=== PATIENT | female | born 1965 | race Caucasian/White ===

== ENCOUNTER 2016-05-15 19:51 | Inpatient (IN) | payer OTHER ==
[~2016-05-15] VITALS: Ht 152.4 cm; Wt 48.6 kg
[~2016-05-15 19:51] MED LIST: PRISTIQ100 MG PO; TOPIRAMATE50 MG PO; TRAZODONE100 MG PO
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
--- NOTE | 2016-05-15 20:10 | NUR ---
PT [place]IB[place] [address] MEDIC/AMBULANCE DID NOT PATCH IN. PT WAS BROUGHT IN WITH PINPOINT PUPILS UNRESPONSIVE. KRISTEN ALEJANDRE ESTABLISHED IV ACCESS IN RAC #20. DR SANTACRUZ AT BEDSIDE. KRISTEN ALEJANDRE ADMINISTERED 0.8MG NARCAN IV. NO CHANGE IN PT RESPONSE. PTS BP 90/50 MANUALLY BY KRISTEN DE LOS SANTOS. PTS 02 SAT 97% RA WITH 78 HR. PT ON ARRIVAL HAS 81MG BS. PT CHANGED AND SECURITY CALLED FOR A WANDING. EKG COMPLETED BY NATHALY BUNDY. BLOOD CULTURES COLLECTED, LABS (LAV,BLUE, TRUJILLO, SST) SENT TO LAB DRAWN BY FILIBERTO.
--- NOTE | 2016-05-15 20:20 | NUR ---
PT STRAIGHT CATHED AND URINE TRIO SENT TO LAB
--- NOTE | 2016-05-15 20:21 | NUR ---
PER KRISTEN DE LOS SANTOS PT VOICED THAT IT WAS A SI INTENTION.
--- NOTE | 2016-05-15 20:21 | NUR ---
PT TO CT SCAN WITH KRISTEN DE LOS SANTOS.
--- NOTE | 2016-05-15 20:25 | NUR ---
THIS RN ASKED PT WHAT MEDICATIONS SHE TOOK TONIGHT, PT STATES "SOME SLEEPING PILLS" PT WAS FURTHER ASKED IF SHE WAS TRYING TO HARM HERSELF AND PT STATES "YES". PT STATED THESE COMMENTS IN A WHISPER.
--- NOTE | 2016-05-15 20:37 | CT SCAN REPORT ---
EXAMINATION: CT HEAD WITHOUT CONTRAST CLINICAL INFORMATION: Unresponsiveness. COMPARISON: No relevant prior imaging is available. TECHNIQUE: Contiguous axial imaging was performed from the skull base to vertex without intravenous administration of contrast. DLP: 743.8 mGy-cm FINDINGS: There is no acute intracranial hemorrhage or abnormal extra-axial collection. No intracranial mass effect or midline shift. Lateral and third ventricles are normal. No hydrocephalus. Siddiqui-white matter differentiation is preserved and there is no evidence of acute territorial infarct. The calvarium and skull base are intact. Mastoid air cells and middle ear cavities are well aerated. Visualized paranasal sinuses are well-aerated. IMPRESSION: Normal CT scan of the head.
[2016-05-15 20:42] LABS: ABSOLUTE BASOPHIL COUNT 0 /CUMM (0.0-0.2); ABSOLUTE EOSINOPHIL COUNT 0 /CUMM (0.0-0.7); ABSOLUTE GRANULOCYTE CT 6.1 /CUMM (1.4-6.5); ABSOLUTE LYMPH COUNT 4.1 /CUMM (1.2-3.4); ABSOLUTE MONOCYTE COUNT 0.5 /CUMM (0.10-0.60); BASOPHIL % 0.5 % (0.0-2.0); EOSINOPHIL % 0.1 % (0-5); HEMATOCRIT 36.2 % (37-47); MEAN CORPUSCULAR HGB 30.1 PG (27.0-31.0); MEAN CORPUSCULAR HGB CONC 33.3 G/DL (33.0-37.0); MEAN CORPUSCULAR VOLUME 90.5 FL (81.0-99.0); WHITE BLOOD CELL COUNT 10.8 /CUMM (4.8-10.8)
[2016-05-15 20:44] LABS: GRANULOCYTE % 56.6 % (42.2-75.2)
--- NOTE | 2016-05-15 22:02 | NUR ---
PT RESTING ON STRETCHER NORMAL RR NOTED.
--- NOTE | 2016-05-15 23:37 | NUR ---
NORMAL RR NOTED. PT RESTING ON STRETCHER.
--- NOTE | 2016-05-16 03:37 | NUR ---
PT'S EYES ARE OPEN AND PT IS STARING AT THE CEILING. PT STATES THAT SHE DOES NOT KNOW WHERE SHE IS. PT RE-ORIENTED TO TIME AND PLACE BY THIS RN.
--- NOTE | 2016-05-16 05:32 | NUR ---
PT STATES THAT SHE TOOK A HANDFUL OF LUNESTA.
--- NOTE | 2016-05-16 05:33 | NUR ---
PT WOULD LIKE FOR HER DAUGHTER YONI TO BE CONTACTED LATER IN THE MORNING AT [phone].
--- NOTE | 2016-05-16 06:25 | NUR ---
THIS RN ATTEMPTED TO CALL PT'S DAUGHTER PER PT'S REQUEST. THIS RN UNABLE TO REACH PT'S DAUGHTER. NO MESSAGE LEFT.
--- NOTE | 2016-05-16 07:30 | NUR ---
FINGER FOOD BREAKFAST TRAY GIVEN, PT CALM AND COOPERATIVE.
--- NOTE | 2016-05-16 11:10 | NUR ---
PT MOVED TO [place] D VIA STRETCHER, NO COMPLAINTS AT THIS TIME. AWAITING CRISIS EVAL.
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
--- NOTE | 2016-05-16 13:34 | ED PSY CRISIS COLLATERAL NOTE ---
Collateral Note Collateral Note Family/Inform/Jolynn Contacts: Reached out to Dr. Sorenson and Renetta Prince, regarding [facility] as she is seen outpatient there, also contacted Magnus her ex boyfriend/ contact/next of kin and the number is not correct. Pt has a daughter Gloria, and we are waiting to get the corrected number, the one in the notes is not correct.
--- NOTE | 2016-05-16 13:59 | NUR ---
PT MOVED TO ROOM # 15, AMBULATORY TOLERATED WELL. NO COMPLAINTS AT THIS TIME. CRISIS IN TO EVAL.
--- NOTE | 2016-05-16 14:01 | NUR ---
FUNERAL DIRECTOR/EMBALMER/OWNER ASKING IF PT WAS PLACED ON PEC. THIS RN SPOKE WITH OFFICER GABBY (C LAST NIGHT IN [place]) - STATES PT WAS PLACED ON EMERGENCY COMMITAL BY OFFICER TEGAN. CRISIS INFORMED OF SAME.
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
--- NOTE | 2016-05-16 15:13 | NUR ---
PT RESTING, WATCHING TV AT THIS TIME. AWAITING CPS BED, PT UPDATED ON PLAN OF CARE.
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
--- NOTE | 2016-05-16 16:25 | NUR ---
Security just informed that pt attempted to elope. Crisis notified Nurse Rachel Camara on CPS so they are aware that pt is an elopement risk.
--- NOTE | 2016-05-16 17:35 | NUR ---
REPORT GIVEN TO CPS RN. PT MEDICATED PER EMAR. DISTRIBUTION AND SECURITY CALLED FOR TRANSPORT.
[2016-05-16 18:08] VITALS: BP 117/67
[2016-05-16] MEDS ORDERED: GEODON80 MG PO (18:27)
--- NOTE | 2016-05-16 20:08 | NUR ---
Pt reports depression for a few weeks and open to help from the treatment team although she has some apprehensions, reassurance provided and pt receptive, flat affect, was placed on a 1:1 immediately upon entering CPS due to reports from crisis that prior to arrival to this unit, attempted to elope in the emergency department. Pt is calm, cooperative although slightly guarded was overall appropriate during admission intake. When asked directly denies hallucinations yet reports passive SI thoughts however, does state that she feels safe in the hospital and would not harm self and would let staff know if anything changed, pt is also a room next to the nurses staff and on a 1:1 for elopement risk and sitter also informed of SI as well as all staff & passed in report to commercial banker. Skin that is visible is clean, dry and intact & pt denies any alterations to skin that is not visible. Dr. Ventura's service notified for H&P 1820 as well. Pt has been stable on unit, + appetite and present in the community, watching TV, no anxiety or agitation reported or observed, pleasant.
[2016-05-16 20:22] VITALS: BP 110/73
--- NOTE | 2016-05-16 22:41 | NUR ---
PT IS ON 1:1 FOR ELOPEMENT RISK AND POSITIVE SI. PT COOP C R:1. PT INTERNALLY PREOCCUPIED, ISOLATIVE.
--- NOTE | 2016-05-17 04:48 | NUR ---
PT CONTINUES ON 1:1. PT UP X 1. SLEPT THRU REST OF NIGHT.
[2016-05-17 07:43] VITALS: BP 99/61
--- NOTE | 2016-05-17 09:57 | SOCIAL WORKER TX PLAN PSYCH ---
Treatment Plan - Please Document: - Evidence that there is ongoing collaboration between - the patient and the interdisciplinary team, - including the patient's active participation and - responsibility for engaging in the treatment regimen, - and that the treatment plan is individualized and - relevant to the patient's conditions. - Treatment plan should reflect documentation indicating - that all active therapeutic efforts are included. Strengths/Capabilities: engaged in out pt tx Physical Limitations (Interventions): none identified Patient Identified Trmt Goals: "I feel hopeless, I just want my life to be better." Discharge Plan: IOP Problem/Goals #1 Problem #1: self-harm behaviors Goal (Short Term): Today I will attend 2 groups Today I will identify 2 stressors Today I will identify 2 positive supports Today I will work on recognizing 3 emotions I am feeling Goal (Intermediate): Be free of suicidal thoughts/attempts Develop 3 coping skills to deal with depression Identify 3 positive support systems to call in crisis Develop a crisis plan with 3 dyson people Identify 2 positive traits per week about myself Identify 2 things I have to look forward to Identify 2 positive people in my life and 1 thing I appreciate about them Interventions: Learn ways to manage depressive symptoms accordingly and identify positive supports to manage life stressors and mood fluctuations. Modalities: Encourage groups, education on depression, provide CBT treatment, family meeting. DSM5/PS Stressors/Medical Prob Diagnosis' (DSM 5, Stressors, Medical): Major Depressive Disorder rec. sev F33.2 s/p OD Current GAF: 25 Treatment Team - Responsibilities of members of the treatment team include: - Medication Management- MD or BARTENDER HELPER - Medication Administration and Monitoring- Nurse - Group Therapy- Occupational Therapist - 1:1 Therapy,Disch Planning,family involvement-Global Human Resources Director
--- NOTE | 2016-05-17 10:08 | CPS MD/APRN INITIAL ASSE PSYCH ---
Psychiatric Admission Mdm Developer's Note Reviewed: Yes Patient Seen and Examined: Yes Identifying Information: Client is a 50 year old single woman in hospital scrubs. Chief Complaint: "I am ok, well depressed" Reaction to Hospitalization: Client is voluntarily hospitalized on inpatient unit, she is seeking help. History of Present Illness Onset of Illness: Client presented to the ED on a police PEER after suicide attempt by OD on esta and erratic driving/laying in the street. Circumstances Leading to Admission: Client reports steadily worsening sleep and depression over the past month. Recently "a creditor took my savings" and this was stressful as client was hoping to use those funds for a new apartment. Problem(s) Justifying Need for Admission: -suicide attempt -depression -continued passive suicidal ideation Past Psychiatric History Past Diagnosis(es)- if any: MDD Alcohol use disorder in full sustained remission Past Precipitating Factors- if any: Client unable to identify specific precipitating factors. Though chart review indicates some past history of medication noncompliance. - Include inpatient and outpatient treatment Treatment History: Client was in outpatient treatment with Dr. Sorenson and Renetta [facility]. [facility] 2015 suicide ideation [facility]PS 2014 suicide ideation [facility] 2009 suicide ideation [facility] IOP 2013 History of Suicide Attempts or Gestures Client endorses one previous suicide attempt by OD "many years ago" before she was connected to psychiatric treatment. Client reports she took pills with intention to , fell asleep, and then awoke unharmed. Substance Abuse History: hx alcohol use in remission since 2005 0.75 ppd tobacco use denies other drug use Allergies: Coded Allergies: bupropion (Intermediate, HIVES 07/20/15) Home Med List: lunesta 3mg HS geodon 80mg 2 PO HS pristiq 100mg daily (increased to 100mg 04/2016) melatonin 10mg HS Past Medication Trials: rozerem 8mg HS topamax 50mg BID remeron 30mg HS chlorpromazine 50mg HS ambien 10mg HS amitriptyline 50mg BID trazodone 100mg 2 at HS doxepin 50mg 2 at HS chantix seroquel 50mg HS lexapro 10mg daily abilify inderal buspar - Include any medical condition(s) that may - impact the patient's recovery/remission Past Medical History: -diverticulosis -borderline hypercholesterolemia Past History Medical History Psychiatric: anxiety, depression Isolation History: Standard Surgical History Surgical History: TUBAL LIGATION, LT KNEE REPAIR Psychiatric Family/Social Hx Family History Psychiatric Illness: son- bipolar disorder daughter- depression Substance Use: father- former alcohol use disorder Suicides: denies Social History Living Situation: with ex-boyfriend and daughter Significant Relationships (family/friends): three children ages 15, 21, 24 endorses daughters as supports Education: bachelor's degree in Arabic and Communications 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 Healthly Behaviors Screening Tobacco Screening Tobacco Use from ED Docu: Current Daily Use Daily Tobacco Use Amount/Type: => 5 Cigarettes daily - If tobacco counseling indicated - the following topics are required. - #1 Recognizing dangerous situations. - #2 Coping Skills. - #3 Basic information about quitting. Status of Tobacco Cessation Counseling: #1, #2 AND #3 Completed Cessation Med Status: Nicotine Patch Ordered Alcohol Screening - ETOH screen POS if BAL >=80 or Audit-C>= M4/F3 Audit-C Score from Diag Assess: 0 Blood Alcohol Level: Laboratory Tests 05/15 2011 Toxicology Serum Alcohol (<10 MG/DL) < 10.0 Alcohol Use Screening Results: Neg per Audit C &/or BAL - If ETOH counseling indicated - the following topics are required. - #1 Express concern about the patient's - drinking at unhealthy levels, include informing - of national norms for moderate drinking: - men <= 14 drinks/week, max 4 drinks/occasion - women <= 7 drinks/week, max 3 drinks/occasion - #2 Providing feedback, including linking alcohol to - negative physical effects (liver injury, hypertension) - negative emotional effects (relationship problems and - depression) - negative occupational consequences (reduced work - performance) - #3 Advising the patient to abstain from alcohol or - to drink below national norms for moderate drinking - (as listed above). Status of ETOH Use Counseling: N/A B/C NO ETOH Use Metabolic Screening - Screen if on a Neuroleptic Medication - Metabolic screening should include: - Blood Pressure, BMI, Glucose or Hgb A1c, & a - Lipid profile from within the past 365 days. Metabolic Screening () Not Applicable, patient not on a neuroleptic. OR ([x]) Patient on a neuroleptic(s) . Enter below results for Glucose or Hemoglobin A1C, and lipid panel if obtained during the last 365 days. BMI: Blood Pressure: 99/61 Laboratory Results (If applicable): [ Lab Cholesterol 244 MG/DL H 12/07/15 1546 Cholesterol/HDL Ratio 4 % 12/07/15 1546 Glucose 78 mg/dL 05/15/162011 HDL Cholesterol 63 mg/dL H 12/07/15 1546 Hemoglobin A1c 5.4 05/15/16 195 LDL Cholesterol, Calc 166 mg/dL H 12/07/15 1546 Triglycerides 76 mg/dL 12/07/15 1546 ] Exam and Plan Mental Status Examination Ambulation Status: steady Appearance: in [facility] scrubs Attitude towards examiner: engaged Psychomotor activity: calm Behavior: cooperative, fair eye contact Quality of speech: normal in rate, volume, tone Affect: constricted Mood: "alright, depressed" Suicidal Ideation: passive suicidal ideation without plan or intention, states she will reach out for help if feeling suicidal Homicidal Ideation: denies. Hallucinations: denies Paranoid/Delusional Material: Denies Difficulties with thought organization: none Goal-oriented thoughts. Insight: poor-fair Judgment: poor-fair Orientation: oriented x4 Cognition: grossly intact Memory Function: grossly intact Estimate of intellectual functioning: average Assets/Strengths Patient Identified Assets/Strengths: "I care a lot about my kids, and I have a dog to care for." Impression/Plan Impression and Plan: Client is a 50 year old single female presenting post suicide attempt by OD, erratic driving, and laying in the street amidst traffic. Client recalls events of the OD but does not recall driving erratically or laying the in the street. She endorses a history of depressive symptoms including low mood, hopeless feelings, suicidal thoughts, poor energy, poor sleep, and poor appetite. She denies any history of psychotic symptoms. She denies any history of manic/ hypomanic symptoms. She has had two previous suicide attempts and three previous hospitalizations for suicidal ideation. - Include all active medical diagnosis that require tx DSM 5 Diagnosis(es): MDD recurrent severe (F33.2) Alcohol use disorder in sustained remission since 2005 (F10.20) R/O Bipolar disorder - Initial Tx Plan for Active Psych & Medical Conditions Treatment Plan: Client presents today reporting that she is "ok" but continues to be depressed with passive suicidal ideations. She reports in the past she has felt that pristiq was quite helpful for her depression, and also that the addition of geodon alleviated her previous HI. She had been taking geodon 160mg at bedtime, but on the unit is getting geodon 80mg BID. She denies any HI today. She endorses that she slept "alright" on the unit, which is significantly better than prior to admission. Client reports decreased energy and a "good" appetite. She lists depression 9/10 (10 worst) and anxiety 9/10 (10 worst). EKG 05/15/16 was sinus rhythm, QTc 433. She will have a 1:1 sitter overnight, as she informed the social work job titles that she has passive SI with plan to smother herself. Will continue client on geodon 80mg BID and reevaluate in the morning, as advised by Dr. Sorenson. Discussed options with client including changing from pristiq to alternate antidepressant versus changing from geodon to alternate medication for additional mood stabilization. Recommended client consider lithium for suicide prevention given the severity of her attempt and history of prior attempt. Client is unwilling to start lithium. Client states she is open to trying abilify which she had been on previously, though she cannot remember how helpful it was. Ordered lipid panel. - Factors that would help patient function - in a less restrictive setting. Factors: -absence of suicidal ideation -improvement in symptoms of depression
--- NOTE | 2016-05-17 10:39 | SOCIAL WORKER PROG NOTE PSYCH ---
Social Work Progress Note Progress Note Met with Shonna today 1:1, she reports having SI currently, stated she would not harm herself on the unit. She denied HI, no AH/VH. Her thoughts are goal directed she is oriented x3. She reports feeling suicidal since January 2016, but did not tell her providers in OPS - Dr. Sorenson or Renetta [facility], [facility]. 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 She stated [employer] cuter her hours and doesn't pay her like they used to. Also, she found an apartment, but "a creditor took all my money out of my account." She lives with her ex-, and her 15yo daughter, Karly, and her 21yo son in [place]. She stated 'I can't catch a break." She was surprized to hear that the police found her unresponsive and was laying in the road. She did remember that the day she took the pills, she told her 15yo daughterKarly that she took the pills and was going to go to the hospital. Shonna also stated she spoke to her daughter, Karly to help he feel better when she was depressed, "she tried to help me feel better but nothing worked." Shonna believes the Tramadol belongs to her 21yo son. She stopped taking her Pristique 2 days prior to suicide attempt (overdose). She stated "I haven't been able to cry in a long time, I just wanted to cry so I went off it." Shonna stated she feels better during the summer, began feeling more depressed, with suicidal thoughts in Jan/Feb 2016. She stated 'Nothing is going to help me, being here (CPS) won't help me." She is not interested in IOP , stated "I have to work." Insight and jusdgement is poor. Shonna refused to sign a release for her ex- (who she lives with and plans to return to live after discharge). She agreed to sign a release for her older daughter, Kuldip Cee for a family meeting, phoned Kuldip and left voicemal for her to come in for a meeting today (between 2pm or 3:30pm) or on Sunday05/19/15. Shonna agreed to be safe on the unit, did state she had thoughts of "smothering herself" but then stated :"I don't know how I would do it, I won't fracisco anything to harm myself here."
--- NOTE | 2016-05-17 11:22 | NUR ---
PT IS STABLE WITH DEPRESSED AND CONSTRICTED AFFECT. SOMEWHAT VISIBLE WITHIN THE COMMUNITY AND INTERACTING MINIMALLY WITH PEERS/STAFF. PT OFTEN DOES NOT ENGAGE YET WHEN SHE DOES SHE IS POLITE, APPROPRIATE, CALM AND COMPLIANT. ATTENDING GROUPS. PT DID NOT VERBALIZE AT SI THOUGHTS TO THIS MHW. REMAINS ON ONE TO ONE FOR SUICIDE RISK. VS ARE STABLE.
[2016-05-17 12:41] VITALS: BP 103/69
--- NOTE | 2016-05-17 15:25 | History & Physical ---
General Information and HPI History of Present Illness: This middle-aged female came into the hospital because she was feeling too depressed and was thinking of committing suicide and therefore was admitted to the hospital for increased depression. She claims she has been seeing the psychiatrist on the outside every month and has been taking her medication but her depression has gotten worse recently and therefore she came to the hospital. She denies any specific physical problems although she admits to having lost some weight in last 6 months or so without trying and she admits that she has not been eating too much. Her past history is essentially negative and she does not have any significant ongoing medical illness. She does report having surgery of left knee for a torn ligament in the past but no other significant illnesses in the past. He admits to smoking daily about three quarters of a pack cigarettes and denies drinking any alcohol or taking any other illegal drugs. She is working at this time and is not and has 3 children and one of them has Crohn's disease and the other 2 are healthy. She claims her mother had diabetes and in her 50s and the father is alive and fairly healthy. Allergies/Medications Allergies: Coded Allergies: bupropion (Intermediate, HIVES 07/20/15) Home Med list Desvenlafaxine Succinate (Pristiq ER) 100 MG TAB.ER.24H 1 TAB PO DAILY DEPRESSION (Reported) Topiramate 50 MG TABLET 1 TAB PO BID ANXIETY (Reported) TRAZODONE HCL (Trazodone HCl) 100 MG TABLET 1 TAB PO QPM SLEEP (Reported) Ziprasidone HCl (Geodon) 80 MG CAPSULE 80 MG PO DAILY MOOD/ANXIETY (Reported) Past History Travel History Traveled to [place] past 21 day No Medical History Psychiatric: anxiety, depression Isolation History: Standard Surgical History Surgical History: non-contributory Past Family/Social History Psychosocial History Where do you live? 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 EENTM: Denies: no symptoms. Cardiovascular: Denies: no symptoms. Respiratory: Denies: no symptoms. GI: Denies: no symptoms. Genitourinary: Denies: no symptoms. Musculoskeletal: Denies: no symptoms. Skin: Denies: no symptoms. Neurological/Psychological: Reports: see HPI, depressed, emotional problems. Hematologic/Endocrine: Denies: no symptoms. Immunologic/Allergic: Denies: no symptoms. All Other Systems: Reviewed and Negative Exam & Diagnostic Data Last 24 Hrs of Vital Signs/I&O Vital Signs Date Time Temp Pulse Resp B/P Pulse O2 O2 Flow FiO2 Ox Delivery Rate 05/17 1241 66 103/69 05/17 0743 97.1 92 99/61 05/16 2021 97.6 53 110/73 05/16 1808 96.9 55 117/67 Intake & Output 05/17 1600 05/17 0800 05/17 0000 Intake Total Output Total Balance Patient 107 lb Weight Physical Exam General Appearance Alert, Oriented X3, Cooperative, No Acute Distress Skin No Rashes, No Breakdown, No Significant Lesion HEENT Atraumatic, PERRLA, EOMI, Mucous Membr. moist/pink Neck Supple, No JVD, No thryomegaly, +2 Carotid Pulse wo Bruit Lymphatic Cervical nl Cardiovascular Regular Rate, Normal S1, Normal S2, No Murmurs, Gallops, Rubs Lungs Clear to Auscultation, Normal Air Movement Abdomen Normal Bowel Sounds, Soft, No Tenderness, No Hepatospenomegaly, No Masses Neurological Exam Findings: Normal Gait, Normal Speech, Strength at 5/5 X4 Ext, Normal Tone, Cranial Nerves 3-12 NL, Reflexes 2+ Cranial Nerves II through XII: Within normal limits and intact Extremities No Clubbing, No Cyanosis, No Edema, No Tenderness/Swelling Assessment/Plan Assessment: This young female is admitted for increased depression and suicidal ideation. She claims she has been taking her medication and following up with psychiatry on the outside every month and still hurting depression has increased. She has some weight loss which may be primarily due to the depression and lack of enough food intake. Her basic blood work including a CBC electrolytes and liver functions are normal although the urine is slightly abnormal and she may have underlying urinary tract infection. Her hemoglobin has dropped slightly from a few months ago from the previous value. We will check her iron studies to see if she has lost any blood in the urine is low causing any anemia although her red cell indices are normal at this time. We will check the urine culture and the iron studies for anemia as well as B12 and folate but no other workup or treatment is needed at this time unless the results showed the need for any treatment after the above blood work. As Ranked By This Provider Problem List: 1. Depression 2. Suicidal ideations Miscellaneous Miscellaneous Documentation Attending Case Discussed With: ROSALIO QUINTERO MD Primary Care Physician: TAY GLOVER MD Patient sees these Specialists none Level of Patient Care: TACOS Sanchez Attending MD Review Statement Attending Statement Attending MD Statement: examined this patient, reviewed EMR data (avail), discussed with nursing Attending Assessment/Plan: This middle-aged female is admitted for increased depression and suicidal ideation. From medical standpoint she is fairly stable although she has lost some weight and there is a drop in her hematocrit compared to the previous value. We will check her iron studies as well as B12 and folate and check her urine for culture sensitivity. She has blood cultures pending in the lab for some uncertain reason and if the iron studies urine culture shows any positive results then we will consider treating her but otherwise she does not need any other workup or treatment at this time.
[2016-05-17 15:37] VITALS: BP 116/79
--- NOTE | 2016-05-17 18:31 | IP INCIDENTAL NOTE PSYCH ---
Incidental Note Notation: Phone call with outpatient prescriber Dr. Sorenson. She reports that client's suicide attempt was "out of the blue". She advises that as client was just admitted today, client can remain on current medications at present, and reevaluate client symptoms in the morning.
[2016-05-17 20:02] VITALS: BP 107/68
--- NOTE | 2016-05-17 21:23 | NUR ---
PT IS CALM, COOPERATIVE WITH STAFF AND PEERS, AND COMPLIANT WITH UNIT RULES. PT IS IN MILIEU, INTERACTING WELL WITH OTHERS. MOOD IS STABLE, AFFECT IS EUTHYMIC, COMMUNICATION IS NORMAL, AND APPETITE IS NORMAL. PT DENIES SI AT THIS TIME.
--- NOTE | 2016-05-18 05:29 | NUR ---
PT ON 1:1 FROM 2300 TO 0800 DUE TO ELOPEMENT RISK AND SUICIDAL IDEATION. PT APPEARED TO SLEEP.
[2016-05-18 07:49] VITALS: BP 104/57
[2016-05-18 12:59] VITALS: BP 106/76
--- NOTE | 2016-05-18 12:59 | SOCIAL WORKER PROG NOTE PSYCH ---
Social Work Progress Note Progress Note Pt reports she took lunesta, regretted it and attempted to drive herself to hospital, and was pulled over, and she doesn't remember too much of laying in the road, or the police, she doesn't know where her car is. Pt has a supportive father of her children, whom she is now "roommates with", and has lived there in his home for the past 3 years. Pt reports she is hopeless, overwhelmed, and has trouble being optimistic. Pt states she is struggling with less hours at work, and a disappointment that she cant move out on her own. Pt has a hx of financial burden.
--- NOTE | 2016-05-18 14:14 | CP SOUTH PROGRESS NOTE PSYCH ---
Psych (Inpt) Progress Note Progress Note Progress Note: [I discussed this patient's progress to date, current mental status, treatment process in the context of the treatment plan, and discharge planning with staff/ team in the daily morning inpatient team meeting. I also met with the patient myself in individual session.] S: "I feel fine" O: Current Medications Sig/Toan Start time Last Medication Dose Route Stop Time Status Admin Desvenlafaxine 100 MG DAILY 05/17 1000 AC 05/18 Succinate PO 0952 Gabapentin 300 MG Q6P PRN 05/16 1345 AC 05/16 PO 1741 Melatonin 10 MG .STK-MED ONE 05/17 2216 DC PO 05/17 2217 Melatonin 10 MG AT BEDTIME 05/16 2200 AC 05/17 PO 2221 Nicotine 14 MG 0800 05/17 0800 AC 05/18 TOP 0900 Trazodone HCl 50 MG AT BEDTIME 05/16 2150 AC 05/17 PO 2220 Ziprasidone 80 MG 1/2H B/BREAKF/DINNER 05/16 1630 AC 05/18 PO 0900 Laboratory Tests 05/18 0631 Chemistry Iron (37 - 170 ug/dL) 45 TIBC (265 - 497 ug/dL) 249 L Ferritin (11.1 - 264 ng/mL) 35.9 Triglycerides (<150 mg/dL) 97 Cholesterol (<200 MG/DL) 200 LDL Cholesterol, Calc (65 - 129 mg/dL) 121 HDL Cholesterol (40 - 60 mg/dL) 60 Cholesterol/HDL Ratio (0.00 - 4.23 %) 3 Folate (2.76 - 20.0 ng/mL) 6.4 Vital Signs Date Time Temp Pulse Resp B/P Pulse O2 O2 Flow FiO2 Ox Delivery Rate 05/18 1259 77 106/76 05/18 0749 96.5 64 104/57 05/17 2001 97.4 73 107/68 05/17 1537 77 116/79 Depression: 10/16 (10 worst) Anxiety: 07/17 (10 worst) Denies SI/HI, AH/VH, PI. Denies racing thoughts. A: Client presents today casually dressed. She reports that she her sleep worsened last night, ~4 hours, but overall feels her energy level is "good" today. She also reports he appetite is good. Client reports that she is no longer suicidal today. She denies suicidal ideation, intent or plan. She feels safe on the unit. She states and also believes that she will not kill herself. She reports she would inform nursing staff if she felt unsafe. This manual writer will discontinue overnight sitter. This manual writer discussed client's current medication regimen. Strongly recommended starting lithium for antisuicidal properties. Educated client on the benefits and the risks. Client is unwilling to try lithium at this time and wishes to try abilify which she has been on in the past , as she does not feel the geodon has been helpful. Educated client on the risks of abilify including EPS, metabolic risks, etc. Client verbalized understanding. Will cross taper geodon to abilify. Educated client on the risk for akathisia. Client understands the risks, benefits, and side effects of his current medication regimen and is agreeable to continue taking them. P: 1. Geodon taper reduction by 20mg BID (40mg total daily) until stop 2. Abilify start 5mg daily, 5mg increase daily until 15mg then re-evaluate 3. Continue other medications as ordered 4. Continue to evaluate for and rule out bipolar disorder
--- NOTE | 2016-05-18 14:16 | NUR ---
PT IS COMPLIANT AND COOPERATIVE. PT IS OUT IN COMMUNITY INTERACTING WELL WITH STAFF AND PEERS. PT MOOD IS STABLE WITH A FLAT AFFECT. PT IS ATTENDING ALL GROUPS THUS FAR. PT IS A LITTLE QUIET WHEN TALKING WITH STAFF BUT DOES ANSWER QUESTIONS. PT DENIES SI THOUGHTS.
[2016-05-18 15:50] VITALS: BP 107/62
[2016-05-18 19:27] VITALS: BP 96/55
--- NOTE | 2016-05-18 21:41 | NUR ---
PT IS CALM, COOPERATIVE WITH STAFF AND PEERS, AND COMPLIANT WITH UNIT RULES. PT IS IN MILIEU MOSTLY, BUT TENDS TO REMAIN SOLITARY, THOUGH WILL INTERACT WITH OTHERS WHEN DIRECTLY ENGAGED. PT MOOD IS STABLE, AFFECT IS EUTHYMIC, COMMUNICATION IS NORMAL, AND APPETITE IS NORMAL. PT DENIES SI AT THIS TIME.
[2016-05-19 07:50] VITALS: BP 111/64
--- NOTE | 2016-05-19 08:41 | CP SOUTH PROGRESS NOTE PSYCH ---
Psych (Inpt) Progress Note Progress Note [I discussed this patient's progress to date, current mental status, treatment process in the context of the treatment plan, and discharge planning with staff/ team in the daily morning inpatient team meeting. I also met with the patient myself in individual session.] S: "I am depressed thinking about returning home." O: Current Medications Sig/Toan Start time Last Medication Dose Route Stop Time Status Admin Aripiprazole 15 MG AT BEDTIME 05/20 2200 AC PO Aripiprazole 10 MG AT BEDTIME 05/190 AC PO 05/19 2200 Aripiprazole 5 MG AT BEDTIME 05/18 2200 DC 05/18 PO 05/18 2201 220 Desvenlafaxine 100 MG DAILY 05/17 1000 AC 05/18 Succinate PO 0952 Gabapentin 300 MG Q6P PRN 05/16 1345 AC 05/16 PO 1741 Melatonin 10 MG .STK-MED ONE 05/18 215 DC PO 05/18 2200 Melatonin 10 MG AT BEDTIME 05/16 2200 AC 05/18 PO 2204 Nicotine 14 MG 0800 05/17 0800 AC 05/18 TOP 0900 Trazodone HCl 50 MG AT BEDTIME 05/16 2150 AC 05/18 PO 2255 Ziprasidone 60 MG 1/2H B/BREAKF/DINNER 05/18 1630 AC 05/18 PO 05/21 1629 1921 Ziprasidone 80 MG 1/2H B/BREAKF/DINNER 05/16 1630 DC 05/18 PO 05/18 1409 0900 No new labs Vital Signs Date Time Temp Pulse Resp B/P Pulse O2 O2 Flow FiO2 Ox Delivery Rate 05/19 0750 97.3 65 111/64 05/18 1927 97.3 71 96/55 05/18 1550 77 107/62 05/18 1259 77 106/76 Depression: 11/16 Anxiety: 06/16 Dressed comfortably, adequate hygiene, long hair worn down, no makeup. Affect is flat and mildly anxious. Fair eye contact which improved towards end of med visit. Soft spoken speech. Describes current mood as "okay," but endorses increased depression related to eventually "going home." She endorses intermittent passive thoughts of SI, but denies plan or intent and identifies her family as protective factor. Patient does not identify her recent suicide attempt as impulsive, stating that she had been thinking about it for days beforehand. She identifies want to live and states she would reach to staff/ help if feeling unsafe or suicidal. A: Patient off overnight 1:1 sitter x 24hrs. She recently started geodon to abilify cross taper, and reports not adverse effects since starting abilify. Patient is willing to d/c geodon completely and continue with abilfy titration at this time. Patient had declined prior recommendation to start lithium, but is willing to "think about it." Digital Field Service Technician educated patient on its reasons for use including, treatment resistent depression, mood stabilization, and protective factors against suicide. She identifies barrier to starting it as "weight gain, " though does verbalize need to gain weight. Past/current symptoms and medication trials reveiwed with patient. She does not identify any benefit since her pristiq increase (as outpatient) from 50mg to 100mg; patient is agreeable to reduce dose as it may be activiting/worsen anxiety symptoms. Will offer increased trazodone to further help with sleep. Client understands the risks, benefits, and side effects (including EPS, akathesia, metabolic) of current medication regimen and is agreeable to continue taking them. Recommend follow up lytes given last NA of 136. P: stop geodon decrease pristiq 50mg daily abilify 10mg tonight, increase 15mg on 05/20 increase trazodone 100mg bedtime encourage patient to remove nicotine patch at night follow up lytes, RE: NA 136 continue to monitor client on unit for safety, SI, r/o bipolar disorder discharge planning per primary team
--- NOTE | 2016-05-19 11:54 | NUR ---
PT STATED HER GOAL TODAY WAS TO STAY POSITIVE. SHE IS COMPLIANT WITH HER MED REGIME AND IS ATTENDING GROUPS. HER MOOD IS DEPRESSED AND AFFECT IS FLAT. WHEN ASKED SHE DENIED ANY SUICIDAL THOUGHTS OR THOUGHTS OF SELF HARM. SHE STATED SHE FELT BETTER THAN WHEN SHE FIRST CAME TO THE HOSPITAL
[2016-05-19 14:21] VITALS: BP 111/66
--- NOTE | 2016-05-19 15:15 | SOCIAL WORKER PROG NOTE PSYCH ---
Social Work Progress Note Progress Note SW met with patient for the first time today. Patient presented withdrawn, sad, and somewhat fearful. Patient continues to endorse suicidal thoughts today and reports feeling hopeless. Patient shared that no one knows that she attempted to end her life and they believe that she is only here to manage depression. Patient reported that she does not want her family to know about her attempted OD. This report writer shared the importance of having family involvement in her treatment and patient was receptive to this. She agreed to have her oldest daughter come in for a family meeting and plans to be honest with her about her reason for admission. Patient is aware that the hospital made a DCF report and that they may request to come meet with her. She handled the news well with no complaints.
[2016-05-19 15:59] VITALS: BP 111/69
[2016-05-19 19:35] VITALS: BP 105/58
--- NOTE | 2016-05-19 20:15 | NUR ---
PT IS STABLE WITH FLAT, DEPRESSED AFFECT. PT IS OUT IN THE COMMUNITY BUT MINIMMALLY INTERACTS WITH PEERS/STAFF. PT DOES NOT ENGAGE UNLESS SOMEONE APPROACHES HER. VERY POLITE AND APPROPRIATE TO THE UNIT. COMPLIANT AND COOPERATIVE. VS ARE STABLE AND PT DENIES ANY SI/HI TO THIS MHW.
--- NOTE | 2016-05-20 05:32 | NUR ---
PT APPEARED TO SLEEP THRU THE NIGHT. NO LONGER ON 1:1. ABILIFY INCREASING.
[2016-05-20 08:55] VITALS: BP 100/59
--- NOTE | 2016-05-20 11:53 | NUR ---
PT REPORTS HER MOOD IS IMPROVING A LITTLE MORE EACH DAY. SHE IS GOING TO GROUPS AND TAKING HER MEDS. SHE IS QUIET OVERALL. SHE DENIES ANY THOUGHTS OF SUICIDE OR SELF HARM AT THIS TIME
[2016-05-20 12:34] VITALS: BP 114/63
--- NOTE | 2016-05-20 12:50 | CP SOUTH PROGRESS NOTE PSYCH ---
Psych (Inpt) Progress Note Progress Note Include the following elements, when applicable: Involvement in the active treatment of the patient with behavioral observations of the patient and the patient's response to the treatment. Review of the ongoing treatment process in the context of the treatment plan. Indication of how multi-disciplinary staff members are carrying out the treatment plan. Plans for future interventions and recommendations for revision of the treatment plan. Liaison with other physicians/providers. Progress Note: Pt reports that slept well last night. Does take the melatonin, "I guess it helps." She has no questions or concerns about medications. 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 Told pt about some programs that have PM IOP but seemed unsure. She notes that she is very socially isolated, "I just don 't say much." Has had no visitors and only spoke with her daughter once. Feels that meds and stay have improved her mood. Denies SI or HI. Denies manic or psychotic sx. Current Medications Sig/Toan Start time Last Medication Dose Route Stop Time Status Admin Aripiprazole 15 MG AT BEDTIME 05/20 2199 AC PO Aripiprazole 10 MG AT BEDTIME 05/19 220 DC 05/19 PO 05/19 2201 2207 Desvenlafaxine 50 MG DAILY 05/20 1000 AC 05/20 Succinate PO 0928 Desvenlafaxine 100 MG DAILY 05/17 1000 DC 05/19 Succinate PO 1017 Gabapentin 300 MG Q6P PRN 05/16 1345 AC 05/16 PO 1741 Melatonin 10 MG .STK-MED ONE 05/19 220 DC PO 05/19 220 Melatonin 10 MG AT BEDTIME 05/16 220 AC 05/19 PO 2208 Nicotine 14 MG 0800 05/17 0800 AC 05/20 TOP 0928 Trazodone HCl 100 MG AT BEDTIME 05/19 2200 AC 05/19 PO 2207 Trazodone HCl 50 MG AT BEDTIME 05/16 2150 DC 05/18 PO 2255 Ziprasidone 60 MG 1/2H B/BREAKF/DINNER 05/18 1630 DC 05/19 PO 05/21 1629 1117 Laboratory Tests 05/20 05/18 0636 0631 Chemistry Sodium (137 - 145 mmol/L) 138 Potassium (3.5 - 5.1 mmol/L) 4.2 Chloride (98 - 107 mmol/L) 103 Carbon Dioxide (22 - 30 mmol/L) 30 Anion Gap (5 - 16) 5 Iron (37 - 170 ug/dL) 45 TIBC (265 - 497 ug/dL) 249 L Ferritin (11.1 - 264 ng/mL) 35.9 Triglycerides (<150 mg/dL) 97 Cholesterol (<200 MG/DL) 200 LDL Cholesterol, Calc (65 - 129 mg/dL) 121 HDL Cholesterol (40 - 60 mg/dL) 60 Cholesterol/HDL Ratio (0.00 - 4.23 %) 3 Folate (2.76 - 20.0 ng/mL) 6.4 Vital Signs Date Time Temp Pulse Resp B/P Pulse O2 O2 Flow FiO2 Ox Delivery Rate 05/20 1234 69 114/63 05/20 0855 96.7 73 100/59 05/19 1935 96.8 64 105/58 05/19 1559 69 111/69 05/19 1421 74 111/66 MSE Appears younger than stated age. Cooperative behavior, good, appropriate eye contact. Nl speech rate and prosody though very quiet. No psychomotor retardation or agitation. Mood fine Affect depressed, constricted, appropriate, non-liable. Linear and goal directed thought process. Denies SI or HI. Does not appear to be responding to internal stimuli. Denies AVHs, paranoia, or delusions. I/J: limited A/P: Pt with hx of MDD with improved mood and anxiety. Concern for level of social isolation when at home. Would benefit from IOP and continued group therapy, if possible. - Continue current medication regimen - Encourage intergration into the milieu
--- NOTE | 2016-05-20 16:01 | NUR ---
LAB CALLED TO REPORT A POSTIVE BLD CX FROM Daniela ON 05/15. +GRAM COCCI AND +CLUSTERS. RESULTS REPORTED TO DR. ROMERO NO ORDERS GIVEN, CONTAMINATION SINCE PT IS ASYNPTOMATIC.
[2016-05-20 16:21] VITALS: BP 119/68
[2016-05-20 19:38] VITALS: BP 129/69
--- NOTE | 2016-05-20 21:24 | NUR ---
PT IS VISIBLE ON UNIT, WATCHING TV IN LOUNGE BUT HAS MINIMAL INTERACTION WITH PEERS. ATTENDED WRAP UP MEETING. NO COMPLAINTS OR SI REPORTED. PT HAS A STABLE MOOD AND FLAT AFFECT.
[2016-05-21 08:43] VITALS: BP 95/77
--- NOTE | 2016-05-21 09:58 | CP SOUTH PROGRESS NOTE PSYCH ---
Psych (Inpt) Progress Note Progress Note Include the following elements, when applicable: Involvement in the active treatment of the patient with behavioral observations of the patient and the patient's response to the treatment. Review of the ongoing treatment process in the context of the treatment plan. Indication of how multi-disciplinary staff members are carrying out the treatment plan. Plans for future interventions and recommendations for revision of the treatment plan. Liaison with other physicians/providers. Progress Note: Pt notes slept well last night. Does not feel overly sedated from meds. Denies SI or HI. Current Medications Sig/Toan Start time Last Medication Dose Route Stop Time Status Admin Aripiprazole 15 MG AT BEDTIME 05/20 2200 AC 05/20 PO 213 Desvenlafaxine 50 MG DAILY 05/20 1000 AC 05/20 Succinate PO 0928 Gabapentin 300 MG Q6P PRN 05/16 1345 AC 05/16 PO 1741 Melatonin 10 MG .STK-MED ONE 05/20 2130 DC PO 05/20 2131 Melatonin 10 MG AT BEDTIME 05/16 2200 AC 05/20 PO 213 Nicotine 14 MG 0800 05/17 0800 AC 05/20 TOP 0928 Trazodone HCl 100 MG AT BEDTIME 05/19 2200 AC 05/20 PO 2137 Laboratory Tests 05/20 0636 Chemistry Sodium (137 - 145 mmol/L) 138 Potassium (3.5 - 5.1 mmol/L) 4.2 Chloride (98 - 107 mmol/L) 103 Carbon Dioxide (22 - 30 mmol/L) 30 Anion Gap (5 - 16) 5 Vital Signs Date Time Temp Pulse Resp B/P Pulse O2 O2 Flow FiO2 Ox Delivery Rate 05/21 0843 97.9 92 95/77 05/20 1938 97.3 62 129/69 05/20 1621 64 119/68 05/20 1234 69 114/63 MSE Appears younger than stated age. Cooperative behavior, good, appropriate eye contact. Nl speech rate and prosody though very quiet. No psychomotor retardation or agitation. Mood fine Affect depressed, constricted, appropriate, non-liable. Linear and goal directed thought process. Denies SI or HI. Does not appear to be responding to internal stimuli. Denies AVHs, paranoia, or delusions. I/J: limited A/P: Pt with hx of MDD with improved mood and anxiety. Concern for level of social isolation when at home. Would benefit from IOP and continued group therapy, if possible. - Continue current medication regimen - Encourage intergration into the milieu
[2016-05-21 12:28] VITALS: BP 102/71
--- NOTE | 2016-05-21 15:02 | NUR ---
PT IS COMPLIANT AND COOPERATIVE. MOOD IS STABLE WITH A FLAT AFFECT. PT DENIES SI AT THIS TIME, NO COMPLAINTS OFFERED. PT CAN BE ISOLATIVE IN BED AT TIMES. PT HAS MINIMAL INTERACTION WITH OTHERS WHEN PRESENT ON UNIT. PT IS ATTENDING GROUPS. VITALS ARE STABLE, APPETITE IS GOOD.
--- NOTE | 2016-05-21 15:49 | NUR ---
Pt is A&O X 3, very isolatory in her room on bed rest and reading her book. Mood and affect are very depressed/ flat, but reported good night sleep and appetite. vital sign is stable and within the patient acceptable range, denies thought of self-harm and to someone else.
[2016-05-21 16:21] VITALS: BP 108/67
[2016-05-21 19:46] VITALS: BP 110/68
--- NOTE | 2016-05-21 20:11 | NUR ---
PT IS CALM, COOPERATIVE WITH STAFF AND PEERS, AND COMPLIANT WITH UNIT RULES. PT IS IN [place], WATCHING TELEVISION THROUGHOUT EVENING AROUND OTHERS, BUT ACTS SLIGHTLY ISOLATIVE AND WITHDRAWN PT TENDS TO NOT COMMUNICATE MUCH WITH PEERS. PT MOOD IS STABLE, AFFECT IS EUTHYMIC, COMMUNCIATION IS NORMAL, AND APPETITE IS NORMAL. PT DENIES SI AT THIS TIME.
--- NOTE | 2016-05-22 06:41 | NUR ---
PATIENT SLEPT ALL NIGHT.
[2016-05-22 07:45] VITALS: BP 100/54
--- NOTE | 2016-05-22 10:45 | CP SOUTH PROGRESS NOTE PSYCH ---
See Addendum Psych (Inpt) Progress Note Progress Note Include the following elements, when applicable: Involvement in the active treatment of the patient with behavioral observations of the patient and the patient's response to the treatment. Review of the ongoing treatment process in the context of the treatment plan. Indication of how multi-disciplinary staff members are carrying out the treatment plan. Plans for future interventions and recommendations for revision of the treatment plan. Liaison with other physicians/providers. Progress Note: [I discussed this patient's progress to date, current mental status, treatment process in the context of the treatment plan, and discharge planning with staff/ team in the daily morning inpatient team meeting. I also met with the patient myself in individual session.] SUJECTIVE: "I don't feel like much has changed since I've gotten here." OBJECTIVE: Current Medications Sig/Toan Start time Last Medication Dose Route Stop Time Status Admin Aripiprazole 15 MG AT BEDTIME 05/20 2200 AC 05/21 PO 2151 Desvenlafaxine 50 MG DAILY 05/20 1000 AC 05/22 Succinate PO 1009 Gabapentin 300 MG Q6P PRN 05/16 1345 AC 05/16 PO 1741 Melatonin 10 MG AT BEDTIME 05/16 2200 AC 05/21 PO 2151 Nicotine 14 MG 0800 08 0800 AC 05/22 TOP 1009 Trazodone HCl 100 MG AT BEDTIME 05/19 2200 AC 05/21 PO 2151 Vital Signs Date Time Temp Pulse Resp B/P Pulse O2 O2 Flow FiO2 Ox Delivery Rate 05/22 0745 97.5 92 100/54 05/21 1946 96.7 84 110/68 05/21 1621 75 108/67 05/21 1228 66 102/71 Lab ALT 28 U/L 05/15/162011 AST 17 U/L 05/15/162011 Albumin 3.6 g/dL 05/15/162011 Albumin/Globulin Ratio 1.4 % 05/15/162011 Alkaline Phosphatase 60 U/L 05/15/162011 Anion Gap 5 05/20/16 0636 BUN 10 mg/dL 05/15/162011 BUN/Creatinine Ratio 14.3 % 05/15/162011 Calcium 9.0 mg/dL 05/15/162011 Carbon Dioxide 30 mmol/L 05/20/16 0636 Chloride 103 mmol/L 05/20/16 0636 Cholesterol 200 MG/DL 05/18/16 0631 Cholesterol/HDL Ratio 3 % 05/18/16 0631 Creatinine 0.7 mg/dL 05/15/162011 Estimated GFR > 60 ml/min 05/15/162011 Ferritin 35.9 ng/mL 05/18/16 0631 Folate 6.4 ng/mL 05/18/16 0631 Globulin 2.5 gm/dL 05/15/162011 Glucose 78 mg/dL 05/15/162011 HDL Cholesterol 60 mg/dL 05/18/16 0631 Hemoglobin A1c 5.4 05/15/16 1956 Iron 45 ug/dL 05/18/16 0631 LDL Cholesterol, Calc 121 mg/dL 05/18/16 0631 Lactic Acid 0.8 mmol/L 05/15/162011 Potassium 4.2 mmol/L 05/20/16 0636 Sodium 138 mmol/L 05/20/16 0636 TIBC 249 ug/dL L 05/18/16 0631 TSH 1.790 uIU/mL 05/15/162011 Total Bilirubin 0.6 mg/dL 05/15/162011 Total Protein 6.1 g/dL L 05/15/162011 Triglycerides 97 mg/dL 05/18/16 0631 Troponin I 0.02 ng/ml 05/15/162011 Absolute Basophils 0 /CUMM 05/15/162011 Absolute Eosinophils 0 /CUMM 05/15/162011 Absolute Granulocytes 6.1 /CUMM 05/15/162011 Absolute Lymphocytes 4.1 /CUMM H 05/15/162011 Absolute Monocytes 0.5 /CUMM 05/15/162011 Basophils % 0.5 % 05/15/162011 CBC w Diff NO MAN DIFF REQ 05/15/162011 Eosinophils % 0.1 % 05/15/16 2012 Gran % 56.6 % 05/15/162011 Hct 36.2 % L 05/15/162011 Hgb 12.1 G/DL 05/15/162011 Lymphocytes % 38.2 % 05/15/16 2012 MCH 30.1 PG 05/15/162011 MCV 90.5 FL 05/15/162011 Monocytes % 4.6 % 05/15/16 2012 PUBS MCHC 33.3 G/DL 05/15/162011 RBC 4.00 /CUMM L 05/15/162011 RDW 14.0 % 05/15/162011 WBC 10.8 /CUMM 05/15/162011 ASSESSMENT: Chart, progress notes, VS, labs, and medication list reviewed. Met with the patient today for the first time on [facility]. On initial encoutner, she was resting in bed reading a book in her room. She was agreeable to meeting with this production underwriter in office. Eye contact was appropriate. Speech was soft-spoken, normal in rate and tone. Affect appeared flat. Mood was "depressed." She presented withdrawn, quiet, provided brief responses to this production underwriter's questions. She reported tolerating all medications well and denied untoward medication effects. She continued to report feeling depressed. Reported depression of 7/10 (10 being the worst) and anxiety of 4/10 (10 being the worst). She was unable to identify triggers to her depression. Reported feeling hopeless and helpless at times. Reported feeling unmotivated. She denied feelings of guilty and worthlessness. She reported sleeping well, approx 7 hours/night and having a good appetite. She denied passive and active suicidal ideation, plans and intent. She denied homicidal ideation. She stated and also believed she will not harm herself or others. She denied auditory and visual hallucinations. Thought process was linear. Thought content was appropriate. No evidence of paranoia or belkis delusions. Cognition was grossly intact. Reviewed option of [place] trial with patient to target treatment resistent depression and for its anti-suicidal properties. Reviewed the risk/benefit/SE profiles of [place], including renal and thyroid function risks, tremor, metabolic risks, and toxicity. Patient again informed of the need for routine serum monitoring. Patient continued to express concerns about potential for weight gain and required serum monitoring. Patient reported she will continue to consider option, but was not presently willing to intiate trial today. Discussed option of adding a second antidepressant such as WBU versus increasing present Abilify to serve as an adjuct to prescribed Prestiq. Reviewed the risk/benefit/ SE profiles of increasing Abilify further such as akethesia and metabolic risks. Patient verbalized understanding education and was agreeable to increasing Abilify to 20mg at bedtime tonight. PLAN: 1. Continue monitoring the patient on unit for safety, mood and suicidal ideation. 2. Continue current medications. 3. Increase Abilify to 20mg QHS. 4. Dispo planning per primary team.
[2016-05-22 12:27] VITALS: BP 97/60
--- NOTE | 2016-05-22 14:54 | NUR ---
PT IS OUT IN COMMUNITY INTERACTING WITH STAFF AND PEERS. PT IS COMPLIANT AND COOPERATIVE. PT IS ATTENDING GROUPS WHICH WAS HER GOAL OF THE DAY. PT MOOD IS STABLE WTIH A FULL RANGE AFFECT. PT DENIES SI THOUGHTS.
--- NOTE | 2016-05-22 15:46 | SOCIAL WORKER PROG NOTE PSYCH ---
Social Work Progress Note Progress Note Patient continues to present with flat affect and depressed mood. Patient continues to report intermittent passive SI with no plan. Patient has been attending groups on the unit and reports finding them helpful. She reports that her mood has improved since admission but that she still feels sad and depressed. Patient reports that she has had no visitors since admission and did not comment whether or not this bothered her. Patients oldest daughter, Kuldip, is coming in tomrorow for a family meeting at 1:30pm. We started to discuss discharge planning today and I discussed the importance of stepping down to IOP post discharge from the hospital. Patient is somewhat resistent to this plan due to her work schedule. Patient is aware that we will discuss this more tomorrow with her daughter during the family meeting.
[2016-05-22 15:48] VITALS: BP 101/70
[2016-05-22 19:51] VITALS: BP 111/68
--- NOTE | 2016-05-22 21:12 | NUR ---
PT IS CALM AND COOPERATIVE WITH STAFF. PT HAS BEEN SEEN OUT IN THE COMMUNITY BUT RATHER ISOLATIVE AROUND PEERS AND APPEARS SLIGHTLY WITHDRAWN WITH MINIMAL INTERACTION WITH STAFF/PEERS. PT OFFERS NO COMPLAINTS AT THIS TIME. PT DENIES HAVING SI THOUGHTS.
--- NOTE | 2016-05-23 05:40 | NUR ---
PT APPEARED TO SLEEP WELL. -SI.
[2016-05-23 08:13] VITALS: BP 89/69
[2016-05-23 12:12] VITALS: BP 114/73
--- NOTE | 2016-05-23 13:59 | CP SOUTH PROGRESS NOTE PSYCH ---
Psych (Inpt) Progress Note Progress Note Include the following elements, when applicable: Involvement in the active treatment of the patient with behavioral observations of the patient and the patient's response to the treatment. Review of the ongoing treatment process in the context of the treatment plan. Indication of how multi-disciplinary staff members are carrying out the treatment plan. Plans for future interventions and recommendations for revision of the treatment plan. Liaison with other physicians/providers. Progress Note: [I discussed this patient's progress to date, current mental status, treatment process in the context of the treatment plan, and discharge planning with staff/ team in the daily morning inpatient team meeting. I also met with the patient myself in individual session.] SUBJECTIVE: "I think I'm starting to feel a little better." OBJECTIVE: Current Medications Sig/Toan Start time Last Medication Dose Route Stop Time Status Admin Aripiprazole 5 MG .STK-MED ONE 05/22 221 DC PO 05/22 2215 Aripiprazole 20 MG AT BEDTIME 05/22 2200 AC 05/22 PO 2220 Desvenlafaxine 50 MG DAILY 05/20 1000 AC 05/23 Succinate PO 1003 Gabapentin 300 MG Q6P PRN 05/16 1345 AC 05/16 PO 1741 Melatonin 10 MG .STK-MED ONE 05/22 2213 DC PO 05/22 2214 Melatonin 10 MG AT BEDTIME 05/16 2200 AC 05/22 PO 2220 Nicotine 14 MG 0800 /08 0800 AC 05/23 TOP 1003 Trazodone HCl 100 MG AT BEDTIME 05/19 2200 AC 05/22 PO 2220 Vital Signs Date Time Temp Pulse Resp B/P Pulse O2 O2 Flow FiO2 Ox Delivery Rate 05/23 1212 63 114/73 05/23 0813 97.3 96 89/69 05/22 1951 98.2 69 111/68 05/22 1548 87 101/70 ASSESSMENT: Chart, progress notes, VS, labs, and medication list reviewed. Met with patient today together with Rose Yates LCSW and the patient's daughter Kuldip for a family meeting. The patient's treatment progress to date, level of safety, medication regimen, and discharge planning were reviewed. The patient was agreeable to following-up with [facility] level of care post-discharge however expressed concerns about how IOP schedule would effect her work schedule. [place] trial was discussed at length during family meeting to help target treatment resistant depression and for anti-suicidal properties. Reviewed the risk/benefit/SE profiles of [place] with the patient again, including kindey/ thyroid function risk, tremor, metabolic risks, toxicity, and need for routine blood work. Patient remained resistent to [place] trial due to SE of wt gain, despite educating the patient that Abilify which she is currently prescribed also carries the same risk of wt gain. Patient's daughter Kuldip was in favor of patient trialing [place], however the patient consistently declined. This engineering technical writer asked the patient to carefully consider this option again, as she has never been on [place] in the past. Patient reported she would consider this option and would be willing to discuss again tomorrow morning. On encounter today, patient presented A&Ox3. Speech was soft-spoken, normal in rate and tone. Affect appeared flat. Mood "depressed." Appeared quiet, withdrawn , and guarded. She reported depression of 6/10 (10 being the worst) and anxiety of 4/10 (10 being the worst). She reported feeling hopeless and helpless. She denied feeling worthless or guilty. Reported good sleep and appetite. She denied passive and active suicidal ideation, plans and intent. However, when asked what reasons she had to live, the patient could not identify any. She denied homicidal ideation. She denied auditory and visual hallcuinations. Thought process was linear. Thought content was appropriate. There was no evidence of paranoia or belkis delusions. Cognition was grossly intact. She reported tolerating increase in Abilify to 20mg QHS last night well and denied untoward medication effects. Discussed with patient option of increasing Pristiq to 100mg QAM to further target depression. Patient unwilling to commit to further medication adjustments at this time. Will readdress tomorrow morning, and also address option of [place] trial. PLAN: 1. Continue current medications. 2. Readdress trial of [place], or increasing Pristiq tomorrow morning to further target depression. 3. Monitor patient on unit for safety, suicidal ideation, and mood. 4. Dispo planning per primary team.
--- NOTE | 2016-05-23 14:18 | NUR ---
PT IS COMPIANT AND COOPERATIVE. PT IS OUT IN COMMUNITY INTERACTING WELL WITH STAFF AND PEERS. PT IS ATTENDING ALL GROUPS AND HER GOAL THIS MORNING WAS TO KEEP DOING SO. PT MOOD IS STABLE WITH A FLAT AFFECT. PT IS ACTIVE IN GROUPS. PT DENIES SI THOUGHTS
--- NOTE | 2016-05-23 15:51 | SOCIAL WORKER PROG NOTE PSYCH ---
Social Work Progress Note Progress Note Patient had family meeting today with her daughter Kuldip. Kuldip expressed concerns regarding patients discharge from the hospital. Patient denies SI today but is unable to identify any desire or reasons to live at present. Patient presented with flat affect during the meeting and was difficult to engage in conversation. Patient did express her resistence to starting on [place] although reported that her mood has changed minimally since admission to the hospital. Patient is still resistent to IOP due to the schedule interfering with her work schedule. 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 We also discussed the importance of patient re-engaging with AA in the community in order to develop a positive support network/ connections with individuals in the community. Patient was open to this idea. Patient also expressed an interest in attending Yoga.
[2016-05-23 16:03] VITALS: BP 122/65
[2016-05-23 19:43] VITALS: BP 123/65
--- NOTE | 2016-05-23 22:29 | NUR ---
Pt is out in the community mood is stable affect is flat. Pt vital signs are stable c/o no pain compliant and cooperative with the staff. Appetite is good will conitue to monitor the pt overnight.
--- NOTE | 2016-05-24 04:06 | NUR ---
PT APPEARED TO SLEEP. -SI.
[2016-05-24 07:48] VITALS: BP 86/65
--- NOTE | 2016-05-24 10:42 | CP SOUTH PROGRESS NOTE PSYCH ---
Psych (Inpt) Progress Note Progress Note Include the following elements, when applicable: Involvement in the active treatment of the patient with behavioral observations of the patient and the patient's response to the treatment. Review of the ongoing treatment process in the context of the treatment plan. Indication of how multi-disciplinary staff members are carrying out the treatment plan. Plans for future interventions and recommendations for revision of the treatment plan. Liaison with other physicians/providers. Progress Note: [I discussed this patient's progress to date, current mental status, treatment process in the context of the treatment plan, and discharge planning with staff/ team in the daily morning inpatient team meeting. I also met with the patient myself in individual session.] SUBJECTIVE: "I'm feeling ok today." OBJECTIVE: Current Medications Sig/Toan Start time Last Medication Dose Route Stop Time Status Admin Aripiprazole 20 MG AT BEDTIME 05/22 2200 AC 05/23 PO 2201 Desvenlafaxine 100 MG DAILY 05/25 1000 DC Succinate PO Desvenlafaxine 100 MG DAILY 05/24 1045 AC Succinate PO Desvenlafaxine 50 MG DAILY 05/20 1000 DC 05/23 Succinate PO 1003 Gabapentin 300 MG Q6P PRN 05/16 1345 AC 05/16 PO 1741 Melatonin 10 MG AT BEDTIME 05/16 2200 AC 05/23 PO 2201 Nicotine 14 MG 0800 08 0800 AC 05/24 TOP 1040 Trazodone HCl 100 MG AT BEDTIME 05/19 2200 AC 05/23 PO 2201 Vital Signs Date Time Temp Pulse Resp B/P Pulse O2 O2 Flow FiO2 Ox Delivery Rate 05/24 0748 96.9 83 86/65 05/23 1943 97.5 79 123/65 05/23 1603 73 122/65 05/23 1212 63 114/73 ASSESSMENT: Chart, progress notes, labs, VS and medication list reviewed. Met with the patient today, who presented A&Ox3. Speech remained soft-spoken, normal in rate and tone. She appeared more easily engagable in conversation today. Appeared less guarded and withdrawn. Affect was constricted. Mood was "ok." She reflected on family meeting yesterday with her daughter and primary team, and reported a desire to trial [facility] IOP despite her work schedule. She reported that her primary concern about discharging home was returning back to her isolative pattern. She showed improved insight into the necessity of surrounding herself with supportive people, which she connected would be a benefit of IOP participation. She also expressed desires to resume participation in AA meetings, yoga and exercise classes. She identified one barrier to isolative behavior outside of hospital being that once she is home she has difficulty getting out of the house d/t poor motivation. We discussed trying to engage in activites such as yoga and exercise classes after leaving IOP or work (on non-IOP days) to keep her engaged in activites before returning home and increase her social network. She identified her daughter Kuldip as a good support in her life, and speaking to her every couple of days on the phone. Encouraged patient to continue weekly contact with her daughter as an additional layer of support. Today, the patient reported depression of 5/10 (10 being the worst) and anxiety of 3/10 (10 being the worst). She reported feeling sometimes hopeless and helpless that her mental health symptoms won't improve. Discussed with the patient that her participation/reaching out to [facility], friends/family will remain a factor in receiving support when needed. Patient agreed with this and seemed motivated to make efforts to stay connected to IOP/AA and family. She denied active and passive SI, plans and intent today. Patient continued to struggle to identify reasons to live. She denied homicidal ideation, plans and intent. She denied auditory and visual hallucinations. She reported her sleep and appetite were good. Thought process was linear and goal-directed. Thought content was appropriate. There was no evidence of paranoia or delusional thoughts. Cognition was grossly intact. Reviewed again with the patient her level of willingness to trial [place] for tx resistant depression and anti-suicidal properties. The patient continued to decline trial of [place], and reported that this would be a medication she would need to further consider once discharged but would not elaborate on the reasons for why she did not want to trial [place] inpatient, despite this newswriter's strong recommendation to start trial. Patient was instead agreeable to increasing Pristiq to 100mg daily to further target depression. Patient reported tolerating all medications well and denied untoward effects. Patient agreeable to increasing Pristiq to 100mg daily today to further target depression. PLAN: 1. Continue montoring the patient on unit for safety, suicidal ideation, and mood. 2. Increase Pristiq from 50mg to 100mg daily to further target depression. 3. Dispo planning per primary team.
[2016-05-24 12:32] VITALS: BP 102/50
--- NOTE | 2016-05-24 12:58 | NUR ---
PT NOT VISIBLE MUCH IN THE [place] TODAY. HER GOAL WAS TO ATTEND GROUPS, WHICH PT HAS NOT BEEN DOING MUCH OF. PT HAS BEEN IN HER ROOM A LOT, ISOLATING FROM HER PEERS. SHE HAS BEEN COOPERATIVE WITH STAFF DIRECTION THOUGH, COMING OUT FOR VITALS AND FOR MEALS. PT DENIES THOUGHTS OF HURTING SELF WHEN ASKED.
--- NOTE | 2016-05-24 16:22 | SOCIAL WORKER PROG NOTE PSYCH ---
Social Work Progress Note Progress Note Patient presented with brighter mood and affect today. Patient reports feeling her mood has improved today and she is having less negative thoughts. Patient seen attending groups today but minimal interaction with peers and staff. Patient appeared less guarded with this fiction writer today and did report being more open to IOP. Patient will be set up with IOP intake for this Sunday05/26/16. Patient denied active suicidal thoughts today but did report some feelings of hopelessness and helplessness today.
[2016-05-24 16:28] VITALS: BP 97/65
[2016-05-24 19:42] VITALS: BP 111/73
--- NOTE | 2016-05-24 22:01 | NUR ---
PT IS VISIBLE ON UNIT, WATCHING TV IN LOUNGE BUT HAS MINIMAL INTERACTION WITH PEERS AND STAFF. ATTENDED WRAP UP MEETING AND PARTICIPATED. NO COMPLAINTS OR SI REPORTED. PT HAS A STABLE MOOD AND FLAT AFFECT.
--- NOTE | 2016-05-25 04:21 | NUR ---
SLEPT, NO COMPLAINTS OFFERED
[2016-05-25 07:53] VITALS: BP 89/56
--- NOTE | 2016-05-25 10:25 | CP SOUTH PROGRESS NOTE PSYCH ---
Psych (Inpt) Progress Note Progress Note Include the following elements, when applicable: Involvement in the active treatment of the patient with behavioral observations of the patient and the patient's response to the treatment. Review of the ongoing treatment process in the context of the treatment plan. Indication of how multi-disciplinary staff members are carrying out the treatment plan. Plans for future interventions and recommendations for revision of the treatment plan. Liaison with other physicians/providers. Progress Note: [I discussed this patient's progress to date, current mental status, treatment process in the context of the treatment plan, and discharge planning with staff/ team in the daily morning inpatient team meeting. I also met with the patient myself in individual session.] SUBJECTIVE: "I'm nervous about going home." OBJECTIVE: Current Medications Sig/Toan Start time Last Medication Dose Route Stop Time Status Admin Aripiprazole 20 MG AT BEDTIME 05/22 2200 AC 05/24 PO 2207 Desvenlafaxine 100 MG DAILY 05/25 1000 DC Succinate PO Desvenlafaxine 100 MG DAILY 05/24 1045 AC 05/25 Succinate PO 1013 Desvenlafaxine 50 MG DAILY 05/20 1000 DC 05/23 Succinate PO 1003 Gabapentin 300 MG Q6P PRN 05/16 1345 AC 05/16 PO 1741 Melatonin 10 MG AT BEDTIME 05/16 2200 AC 05/24 PO 2207 Nicotine 14 MG 0800 08 0800 AC 05/25 TOP 1014 Trazodone HCl 100 MG AT BEDTIME 05/19 2200 AC 05/24 PO 2207 Vital Signs Date Time Temp Pulse Resp B/P Pulse O2 O2 Flow FiO2 Ox Delivery Rate 05/25 0753 96.8 94 89/56 05/24 1942 97.8 71 111/73 05/24 1628 80 97/65 05/24 1232 63 102/50 ASSESSMENT: Chart, progress notes, labs, VS, and medication list were reviewed. Met with the patient today together with Rose Yates LCSW, to discuss possible discharge today. Patient presented flat, more guarded and withdrawn than yesterday. Spoke minimally during encounter. Showed poor eye contact. Patient reported ambivalent about discharging today to [facility] intake. Reported feeling very nervous about idea of discharge today and would not contract for safety outside of the hospital. She reported intermittent passive SI, denied plans or intent. Reported feeling mentally prepared for discharge tomorrow, but showed limited insight into the reasons for this. She remains motivated to follow-up for IOP intake/treatment. She denied homicidal ideation. She denied active suicidal thoughts, plans or intent while in hospital and provided a safety promise while on unit. She denied auditory and visual hallucinations. There was no evidence of paranoia or belkis delusions. Thought process was organized. Thought content was ambivalent. Cognition was grossly intact. Patient reported tolerating increase in Pristiq to 100mg QAM. Patient denied untoward medications effects, will continue current medications. PLAN: 1. Continue monitoring the patient on unit for safety, suicidal ideation, and mood. 2. Discharge tomorrow with IOP f/u. 3. Continue current medications. 4. Encourage participation in milieu groups.
[2016-05-25 12:24] VITALS: BP 107/48
--- NOTE | 2016-05-25 13:53 | NUR ---
PT IS COMPLIANT AND COOPERATIVE. MOOD IS STABLE WITH A CONSTRICTED AFFECT. PT DENIES SI AT THIS TIME, NO COMPLAINTS OFFERED. PT IS PRESENT IN THE COMMUNITY, HAS MINIMAL INTERACTION WITH PEERS AND STAFF; PT PRESENTS WITHDRAWN. PT IS ATTENDING GROUPS. VITALS ARE STABLE, APPETITE IS GOOD.
--- NOTE | 2016-05-25 14:31 | SOCIAL WORKER PROG NOTE PSYCH ---
Social Work Progress Note Progress Note Patient presented this AM with passive SI and was unable to identify any reasons to live at present. Patient continues to present with flat affect and depressed mood. She reports continued nervousness/anxiety in regards to dischage from the hospital. Patient stated that she does not feel comfortable discharging the hospital today and would be open to discharge tomorrow. We informed patient that we are tentatively planning for discharge from the hospital tomorrow with step down to [facility]. She has intake scheduled tomorrow at 12:45pm which she is aware of. Patient spoke minimally during our conversation, appeared withdrawn and guarded.
--- NOTE | 2016-05-25 14:32 | SOCIAL WORKER PROG TO GOALS ---
Progress Toward Goals Strengths/Capabilities: engaged in out pt tx Physical Limitations (Interventions): none identified Patient Identified Trmt Goals: "I feel hopeless, I just want my life to be better." Discharge Plan: [facility] Problem/Goals #1 Problem #1: self-harm behaviors Goal (Short Term): Today I will attend 2 groups Today I will identify 2 stressors Today I will identify 2 positive supports Today I will work on recognizing 3 emotions I am feeling Goal (Animal Science Professor): Be free of suicidal thoughts/attempts Develop 3 coping skills to deal with depression Identify 3 positive support systems to call in crisis Develop a crisis plan with 3 dyson people Identify 2 positive traits per week about myself Identify 2 things I have to look forward to Identify 2 positive people in my life and 1 thing I appreciate about them Interventions: Learn ways to manage depressive symptoms accordingly and identify positive supports to manage life stressors and mood fluctuations. Progress: Continues to endorse passive SI with no plan. She continues to report no will to live and is nervous when talking about discharge.Has agreed at this time to attend IOP at once discharged from the hospital.
[2016-05-25 16:18] VITALS: BP 93/63
[2016-05-25 20:12] VITALS: BP 118/73
--- NOTE | 2016-05-25 21:08 | NUR ---
PT IS CALM, COOPERATIVE WITH STAFF AND PEERS, AND COMPLIANT WITH UNIT RULES. PT IS IN [place] OFTEN, THOUGH WITHDRAWN, NOT INTERACTING MUCH WITH OTHERS. PT ENJOYED VISIT FROM SEVERAL FAMILY MEMBERS ON UNIT DURING THE EVENING. MOOD IS STABLE, AFFECT IS FLAT/CONSTRICTED, COMMUNCIATION IS NORMAL, AND APPETITE IS NORMAL. PT DENIES SI AT THIS TIME.
[2016-05-26 08:02] VITALS: BP 105/68
[2016-05-26] MEDS ORDERED: PRISTIQ ER100 MG PO (08:04)
[2016-05-26] MEDS ORDERED: TRAZODONE HCL100 M1 PO (08:04)
[2016-05-26] MEDS ORDERED: NICOTINE PATCH1 EAC2 TOP (08:04)
[2016-05-26] MEDS ORDERED: ABILIFY20 M1 PO (08:04)
--- NOTE | 2016-05-26 08:35 | CP SOUTH PROGRESS NOTE PSYCH ---
Psych (Inpt) Progress Note Progress Note Include the following elements, when applicable: Involvement in the active treatment of the patient with behavioral observations of the patient and the patient's response to the treatment. Review of the ongoing treatment process in the context of the treatment plan. Indication of how multi-disciplinary staff members are carrying out the treatment plan. Plans for future interventions and recommendations for revision of the treatment plan. Liaison with other physicians/providers. Progress Note: [I discussed this patient's progress to date, current mental status, treatment process in the context of the treatment plan, and discharge planning with staff/ team in the daily morning inpatient team meeting. I also met with the patient myself in individual session.] SUBJECTIVE: "I feel good." OBJECTIVE: Current Medications Sig/Toan Start time Last Medication Dose Route Stop Time Status Admin Aripiprazole 20 MG AT BEDTIME 05/25 2200 AC 05/25 PO 2148 Aripiprazole 20 MG AT BEDTIME 05/22 2200 DC 05/24 PO 2207 Desvenlafaxine 100 MG DAILY 05/24 1045 AC 05/25 Succinate PO 1013 Gabapentin 300 MG Q6P PRN 05/16 1345 AC 05/16 PO 1741 Melatonin 10 MG AT BEDTIME 05/16 2200 AC 05/25 PO 2149 Nicotine 14 MG 0800 08 0800 AC 05/25 TOP 1014 Trazodone HCl 100 MG AT BEDTIME 05/19 2200 AC 05/25 PO 2149 Vital Signs Date Time Temp Pulse Resp B/P Pulse O2 O2 Flow FiO2 Ox Delivery Rate 05/26 0802 97.3 75 105/68 05/25 2011 97.5 72 118/73 05/25 1618 76 93/63 05/25 1224 69 107/48 ASSESSMENT: Chart, progress notes, VS, labs and medication list were reviewed. Met with patient today on the date of discharge. She presented A&Ox3. She presented brighter today, with bañuelos range in affect. Speech was normal in rate , tone and volume. Eye contact was appropriate. Mood was "good." She had no complaints. She reported depression of 3/10 (10 being the worst) and anxiety of 3/10 (10 being the worst). She denied feeling worthless, guilty or helpless. She reported some feelings of hopelessness, but expressed feeling positive about transitioning to [facility] post-discharge for continued support and treatment. She denied active and passive suicidal ideation, plans and intent. She denied homicidal ideation. She stated and also believed she will not harm herself or others. She identified protective factors of "my family" and "my job." She verbalized a safety plan to call 911/go to nearest emergency department in the event of an emergency or if suicidal thoughts should recur. Thought process was organized and goal-directed. Thought content was appropriate. There was no evidence of paranoia or delusions. She denied auditory and visual hallucinations. Cognition was grossly intact. She reported sleep and appetite were good. She reported tolerating all medications well and denied untoward medication effects. She reported feeling safe and ready for discharge. PLAN: 1. Discharge today into the care of her daughter. 2. F/u with IOP intake today at 12:45PM. 3. F/u with smoking Cessation Program on 05/31/16 at 4PM. 4. All discharge prescriptions were called into [facility] (#[phone]). Patient advised to take medications as prescribed. Patient verbalized understanding of instruction. 5. Patient will return to work. 6. In the event of an emergency, call 911/go to nearest emergency department. Patient verbalized understanding of instructions.
--- NOTE | 2016-05-26 09:13 | NUR ---
Pt is A&O X 3, compliant with medication and group therapies/activities. patient is being discharged today and will be attending the [facility] for her discharge plan. Pt acknowledges the discharge, aftercare, and follow-up plans, denies thought of self-harm and to someones else, denies any physical discomfort or pain, mood is stable but continues with euthymic/ apathetic affect acknowleges the receipt of emergency phone number and to use them when feeling out of control or overwhelmed
[2016-05-26] MEDS ORDERED: MELATONIN5 M7 PO (10:31)
--- NOTE | 2016-05-26 11:25 | DISCHARGE SUMMARY REPORT-PSYCH ---
Visit Information Visit Dates/Diagnosis' Admission Date: 05/16/16 Discharge Date: 05/26/16 Reason for Admission: Suicide attempt by overdose on Lunesta. Psy Discharge Primary Diag: MDD, recurrent, severe Psy Discharge Secondary Diag: R/O Bipolar disorder; Alcohol use disorder in sustained remission. Hospital Course Significant Lab Findings: Lab Sodium 136 mmol/L L 05/15/162011 Sodium 138 mmol/L 05/20/16 0636 Absolute Lymphocytes 4.1 /CUMM H 05/15/162011 Hct 36.2 % L 05/15/162011 RBC 4.00 /CUMM L 05/15/16201105/15/16 EKG: Sinus rhythm with rate of 69. Borderline T abnormalities, anterior leads. ME:152; QRSD:86; QT:404; QTc:433; P:78; QRS:76; T:54. Course Complications: None. Consultations: The patient was seen for admission history and physical by corporate representative Dr. Mitch Ventura. Please see his note for additional information. Allergies: Coded Allergies: bupropion (Intermediate, HIVES 07/20/15) Hospital Course/TX Response: The patient was monitored on the unit for safety, suicidal ideation, and mood. She participated in multimodal treatments on the unit. The patient refused consistently refused trial of [place] for suicide prevention and treatment resistent depression. Geodon 160mg at bedtime and Lunesta 3mg at bedtime were discontinued. Melatonin 10mg at bedtime was continued for insomnia. Abilify 5mg was started at bedtime for mood stabilization and was increased to 20mg at bedtime. Trazodone 100mg was additionally started at bedtime for depression/ insomnia. Pristiq 100mg daily was initially decreased to 50mg daily for depression, and later increased back to 100mg daily. The patient tolerated all medications well and denied untoward medication effects. During the hospital course, the patient's mood and affect improved. Suicidal ideation remitted. A family meeting was held with the patient, her daughter Rose Christiansen MilanLISA, and this senior copywriter. The patient's treatment progress, level of safety, medication regimen, and discharge plan were reviewed. This senior copywriter discussed the benefits of [place] trial for anti-suicidal properties and treatment resistent depression during the family meeting; the patient's daughter was in favor of this trial for the patient, however, the patient consistently refused trial of [place] during the hospital course. The patient and her daughter were in favor of the patient following up with after care plan of [facility] for continued medication and psychiatric symptom management. On the date of discharge, 05/26/16, the patient presented A&Ox3. She presented brighter today, with bañuelos range in affect. Speech was normal in rate, tone and volume. Eye contact was appropriate. Mood was "good." She had no complaints. She reported depression of 3/10 (10 being the worst) and anxiety of 3/10 (10 being the worst). She denied feeling worthless, guilty or helpless. She reported some feelings of hopelessness, but expressed feeling positive about transitioning to [facility] post-discharge for continued support and treatment. She denied active and passive suicidal ideation, plans and intent. She denied homicidal ideation. She stated and also believed she will not harm herself or others. She identified protective factors of "my family" and "my job." She verbalized a safety plan to call 911/go to nearest emergency department in the event of an emergency or if suicidal thoughts recurred. Her thought process was organized and goal-directed. Her thought content was appropriate. There was no evidence of paranoia or delusions. She denied auditory and visual hallucinations. Cognition was grossly intact. She reported sleep and appetite were good. She reported tolerating all medications well and denied untoward medication effects. She reported feeling safe and ready for discharge. Discharge HBIPS - Tobacco Use Treatment Offered Post DC Medications Offered: Script Given-See Med List Post DC Tobacco Treatment Plan: Daniel Tobacco Tx Pgm Program Appt Date: 05/31/16 Program Appt Time: 1600 - EtOH/Drug Use D/O Treatment Offered Post DC Medications Offered: Med Not Indicated for D/O Post DC EtOH/SubAbuse TX Plan: Refused Post DC Tx Pgm Metabolic Screening - Screen if on a Neuroleptic Medication - Metabolic screening should include: - Blood Pressure, BMI, Glucose or Hgb A1c, & a - Lipid profile from within the past 365 days. Metabolic Screening () Not Applicable, patient not on a neuroleptic. OR ([X]) Patient on a neuroleptic(s) . Enter below results for Glucose or Hemoglobin A1C, and lipid panel if obtained during the last 365 days. BMI: Blood Pressure: 105/68 Laboratory Results (If applicable): Lab Cholesterol 200 MG/DL 05/18/16630 Cholesterol/HDL Ratio 3 % 05/18/16630 HDL Cholesterol 60 mg/dL 05/18/16630 Hemoglobin A1c 5.4 05/15/161955 LDL Cholesterol, Calc 121 mg/dL 05/18/16630 Triglycerides 97 mg/dL 05/18/16630 Discharge Instructions General Discharge Information Discharge Medications: Discharge Medications- (Dose, route, freq, indication): HOME MEDICATION LIST START taking these NEW Home Medications: Melatonin Dose: ORAL, AT BEDTIME for Qty: 28 Called in to (Melatonin) 5 MG 10 Milligram insomnia Refills: 0 Pharm 1 TABLET Nicotine (Nicotine Dose: On the skin, DAILY @8 AM Qty: 14 Call-In to Patch) 14 MG/24 HOUR 14 Milligram for tobacco cessation Refills: 0 Pharm 1 PATCH.TD24 Desvenlafaxine Dose: ORAL, DAILY for Qty: 14 Call-In to Succinate (Pristiq 1 Tablet anxiety/depression Refills: 0 Pharm 1 ER) 100 MG TAB.ER.24H Trazodone HCl Dose: ORAL, AT BEDTIME for Qty: 14 Call-In to (Trazodone HCl) 100 100 Milligram insomnia/depression Refills: 0 Pharm 1 MG TABLET Aripiprazole Dose: ORAL, AT BEDTIME for Qty: 14 Call-In to (Abilify) 20 MG 1 Tablet mood stabilization Refills: 0 Pharm 1 TABLET STOP taking these DISCONTINUED Home Medications: Ziprasidone HCl (Geodon) 80 MG Dose: ORAL, DAILY for MOOD/ANXIETY CAPSULE 80 Milligram Reason Stopped: Per Doctor Decision 1: [facility], [address] [place] [address] Multiple Neuroleptics: ([X]) Not Applicable OR Document below three failed attempts at monotherapy, or a plan to taper to monotherapy, or augmentation of Clozapine. () Patient's Diet: Regular. Patient's Activity: No restrictions. DC Disposition: Patient to return to home and family. Recommendations: The patient was advised to please take medications as prescribed. She was advised to follow-up with scheduled outpatient referrals (please see in below section). She was advised not to use prescribed nicotine patch if she resumed smoking cigarettes. She was provided with information on [facility] Smoking Cessation Program. She was advised that in the event of an emergency, to call 911/go to nearest emergency department. The patient verbalized understanding off all instructions. *Recommendation: to revisit [place] trial during IOP course for suicide prevention and treatment resistent depression. Referred To: Intensive Outpatient Program [address] [place] [address] [phone] Intake appointment scheduled on 05/26/16 at 12:45PM. Smoking Cessation Program [address] [place] [address] [phone] Walk-in to smoking cessation group on 05/31/16 at 4PM. Please bring appointment card. Copies To: IOP; Smoking Cessation Program
--- NOTE | 2016-05-26 11:47 | SOCIAL WORKER PROG NOTE PSYCH ---
Social Work Progress Note Progress Note Patient to discharge the hospital today. Patient denies any suicidal thoughts at present but does report some anxiety/ nervousness about returning home. Patient reports that she fears things won't be different and she will slip into a deep depression again. Patient reminded that this time she will have the support of IOP and med management. Patient has intake today at IOP at 12:45pm. Patient has agreed to attend the mental health afternoon track in order to continue working. Patient also referred to Smoking Cessation program and referred to the next group on 05/31/16 @4pm.
== END 2016-05-26 12:55 | DRG 751 ==
LOC: ERH 19:51 → ENPENDDIS 05-16 13:40 → CP SOUTH 05-16 13:40 → ERHI 05-16 13:40 → CP SOUTH 05-16 17:58
PROVIDERS: Emergency Medicine; Internal Medicine; ADMIT Psychiatry & Neurology Psychiatry
DX: F33.2 Major depressive disorder, recurrent severe without psychotic features (principal); Z72.89 Other problems related to lifestyle
CPT/HCPCS: 36415; 80307; 81001; 81025; 87040; 87086; 90834; 93005; 93010; 96361; 96374; 99291; G0480; J0401

== ENCOUNTER 2017-09-01 13:02 | Emergency (ER) | payer OTHER ==
[~2017-09-01] VITALS: Ht 152.4 cm; Wt 55.8 kg
[~2017-09-01 13:02] MED LIST changes: +ABILIFY20 M1 PO; +GEODON80 MG PO; +MELATONIN5 M7 PO; +NICOTINE PATCH1 EAC2 TOP; +PRISTIQ ER100 MG PO; +TRAZODONE HCL100 M1 PO
[2017-09-01 14:38] LABS: ABSOLUTE BASOPHIL COUNT 0 /CUMM (0.0-0.2); ABSOLUTE EOSINOPHIL COUNT 0 /CUMM (0.0-0.7); ABSOLUTE GRANULOCYTE CT 7.4 /CUMM (1.4-6.5); ABSOLUTE LYMPH COUNT 2.8 /CUMM (1.2-3.4); ABSOLUTE MONOCYTE COUNT 0.5 /CUMM (0.10-0.60); BASOPHIL % 0.4 % (0.0-2.0); EOSINOPHIL % 0 % (0-5); GRANULOCYTE % 68.4 % (42.2-75.2); HEMATOCRIT 39.3 % (37-47); MEAN CORPUSCULAR HGB CONC 33.3 G/DL (33.0-37.0); RBC DISTRIBUTION WIDTH 14.1 % (11.5-14.5); RED BLOOD CELL CT 4.37 /CUMM (4.20-5.40); WHITE BLOOD CELL COUNT 10.8 /CUMM (4.8-10.8)
--- NOTE | 2017-09-01 14:42 | ED NECK/BACK PAIN COMPLAINT ---
History of Present Illness General Chief Complaint: Low Back Pain/Injury Stated Complaint: L SIDED L BACK AND L SIDED ABD/FLANK PAIN Source: patient Exam Limitations: no limitations Vital Signs & Intake/Output Vital Signs & Intake/Output Vital Signs Date Time Temp Pulse Resp B/P B/P Pulse O2 O2 Flow FiO2 Mean Ox Delivery Rate 09/01 2058 97.9 68 18 118/62 98 Room Air 09/01 1644 98.2 56 18 95/51 98 09/01 1316 97.3 79 18 114/74 96 Room Air Allergies Coded Allergies: bupropion (Intermediate, HIVES 07/20/15) Reconcile Medications Aripiprazole (Abilify) 20 MG TABLET 1 TAB PO AT BEDTIME mood stabilization Cyclobenzaprine HCl 10 MG TABLET 1 TAB PO TID SPASMS Desvenlafaxine Succinate (Pristiq ER) 100 MG TAB.ER.24H 1 TAB PO DAILY anxiety /depression Ibuprofen 800 MG TABLET 1 TAB PO TID pain Melatonin 5 MG TABLET 10 MG PO AT BEDTIME insomnia Nicotine (Nicotine Patch) 14 MG/24 HOUR PATCH.TD24 14 MG TOP 0800 tobacco cessation Tramadol HCl 50 MG TABLET 1-2 TAB PO BIDP PRN pain Trazodone HCl 100 MG TABLET 100 MG PO AT BEDTIME insomnia/depression Triage Note: PT TO ER C/C LEFT FLANK/ ABD PAIN X 2 WEEKS, WORSENING. WAS TREATED FOR UTI ABOUT 2 WEEKS AGO. DENIES DYSURIA OR URGENCY. DENIES FEVERS/CHILLS. +NAUSEA Triage Nurses Notes Reviewed? yes Onset: Abrupt Duration: week(s): (2), constant, continues in ED Timing: recent history Quality/Severity: moderate HPI: 51-year-old female comes into emergency room complaints of bilateral flank pains being going on for the past 2 weeks. Patient reports symptoms began around August 18. She was seen at the urgent care center and she was prescribed cephalexin for urinary tract infection. She reports the pain has been persistent. She denies any fever chills vomiting. She's had some increased frequency and urgency with urination still. Denies any other associated symptoms. Comes in for further evaluation. She had an ultrasound scheduled for next week but has had some increased pain (Tanvir Cruz) Past History Travel History Traveled to [place] past 21 day No Medical History Any Pertinent Medical History? see below for history Psychiatric: anxiety, depression Surgical History Surgical History: non-contributory Psychosocial History Who do you live with Other (see notes) What is your primary language Turkmen Tobacco Use: Current Daily Use Daily Tobacco Use Amount/Type: => 5 Cigarettes daily Family History Hx Contributory? No (Tanvir Cruz) Review of Systems Review of Systems Constitutional: Reports: no symptoms. Eyes: Reports: no symptoms. Ears, Nose, Throat, Mouth: Reports: no symptoms. Respiratory: Reports: no symptoms. Cardiovascular: Reports: no symptoms. Gastrointestinal/Abdominal: Reports: see HPI. Musculoskeletal: Reports: no symptoms. Skin: Reports: no symptoms. Neurological/Psychological: Reports: no symptoms. All Other Systems: Reviewed and Negative (Tanvir Cruz) Physical Exam Physical Exam General Appearance: well developed/nourished, mild distress Head: atraumatic Eyes: Bilateral: normal appearance. Ears, Nose, Throat, Mouth: hearing grossly normal, moist mucous membrane Neck: normal inspection Respiratory: normal breath sounds, no respiratory distress Cardiovascular: regular rate/rhythm Gastrointestinal: normal bowel sounds, soft, non-tender Back: normal inspection, CVA tenderness (R), CVA tenderness (L) Extremities: normal range of motion Neurologic/Psych: awake, alert, oriented x 3, normal mood/affect Skin: intact, normal color, warm/dry Core Measures CVA/TIA Diagnosis: No (Tanvir Cruz) Progress Differential Diagnosis: cauda equina syn, herniated disc, myofascial strain, pyelo/UTI, sciatica, ureterolithiasis Plan of Care: Orders Procedure Date/time Status Add-on Test (ER Only) 09/01 1723 Active Add-on Test (ER Only) 09/01 1412 Active CULTURE,URINE 09/01 1326 Active URINE 09/01 1326 Complete URINALYSIS 09/01 1312 Complete LIPASE 09/01 1312 Complete COMPREHENSIVE METABOLIC PANEL 09/01 1312 Complete CBC WITHOUT DIFFERENTIAL 09/01 1312 Complete Laboratory Tests 09/01/17 1426: Anion Gap 11, Estimated GFR > 60, BUN/Creatinine Ratio 8.9, Glucose 88, Calcium 9.4, Total Bilirubin 0.4, AST 14, ALT 22, Alkaline Phosphatase 74, Total Protein 7.0, Albumin 3.9, Globulin 3.1, Albumin/Globulin Ratio 1.3, Lipase 305 H, CBC w Diff NO MAN DIFF REQ, RBC 4.37, MCV 90.0, MCH 30.0, MCHC 33.3, RDW 14.1, Gran % 68.4, Lymphocytes % 26.4, Monocytes % 4.8, Eosinophils % 0, Basophils % 0.4, Absolute Granulocytes 7.4 H, Absolute Lymphocytes 2.8, Absolute Monocytes 0.5, Absolute Eosinophils 0, Absolute Basophils 0 09/01/17 1326: Urine Color YEL, Urine Clarity CLEAR, Urine pH 7.0, Ur Specific [place] 1.010, Urine Protein NEG, Urine Ketones NEG, Urine Nitrite NEG, Urine Bilirubin NEG, Urine Urobilinogen 0.2, Ur Leukocyte Esterase TRACE H, Ur Microscopic SEDIMENT EXAMINED, Urine RBC 3-5, Urine WBC 3-5 H, Ur Epithelial Cells MANY H, Urine Hemoglobin SMALL H, Urine Glucose NEG, Urine Test NEGATIVE Microbiology 09/01 1325 URINE ROUT: Urine Culture - RECD Diagnostic Imaging: Viewed by Me: CT Scan, Ultrasound. Discussed w/RAD: CT Scan, Ultrasound. Radiology Impression: PATIENT: JACQUELINE DELUCA PRESENT AGE: 51 PATIENT ACCOUNT NO: [id number] : 65 LOCATION: [facility] ORDERING PHYSICIAN: Tanvir SNYDER SERVICE DATE: 09/01/17 EXAM TYPE: US - US -RENAL/KIDNEY EXAMINATION: US RETROPERITONEAL COMPLETE (RENAL) CLINICAL INFORMATION: Bilateral flank pain COMPARISON: None TECHNIQUE: Real-time imaging of the kidneys and bladder. FINDINGS: RIGHT KIDNEY: 10.0 x 5.1 x 4.8 cm (SAG x AP x TRV). The kidney is normal in size, contour, and echogenicity. Renal cortical thickness is normal. No calculi or focal parenchymal lesions. No hydronephrosis. LEFT KIDNEY: 10.3 x 4.8 x 4.3 cm (SAG x AP x TRV). The kidney is normal in size, contour, and echogenicity. Renal cortical thickness is normal. No calculi or focal parenchymal lesions. No hydronephrosis. BLADDER: Partially distended and unremarkable. Bilateral ureteral jets are demonstrated. Prevoid bladder volume is 69.8 mL. Postvoid bladder volume is 0 mL. IMPRESSION: Unremarkable renal ultrasound. DICTATED BY: Elias Nicole MD DATE/TIME DICTATED:09/01/171709 ACCESS ASSOC:KE DATE/TIME TRANSCRIBED:1709 CONFIDENTIAL, DO NOT COPY WITHOUT APPROPRIATE AUTHORIZATION. < Electronically signed in Other Vendor System> SIGNED BY: Elias Nicole MD 09/01/171717, PATIENT: JACQUELINE DELUCA PRESENT AGE: 51 PATIENT ACCOUNT NO: [id number] : 65 LOCATION: [facility] ORDERING PHYSICIAN: Tanvir SNYDER SERVICE DATE: 09/01/17 EXAM TYPE: CAT - CT ABD & PELVIS W IV CONTRAST EXAMINATION: CT ABDOMEN AND PELVIS WITH CONTRAST CLINICAL INFORMATION: Bilateral flank pain COMPARISON: Renal ultrasound the same day TECHNIQUE: Multidetector volumetric imaging was performed of the abdomen and pelvis following IV administration of 95 mL of Optiray 320 intravenous contrast. Sagittal and coronal reformatted images were obtained on the technologist's workstation. DLP: 264.18 mGy-cm FINDINGS: LUNG BASES: The visualized lung bases are unremarkable. LIVER, GALLBLADDER, AND BILIARY TREE: The liver is normal in size, shape, and attenuation. No focal hepatic lesion or biliary ductal dilatation is present. The gallbladder is unremarkable with no evidence of radiopaque gallstones, gallbladder wall thickening, or obvious pericholecystic inflammatory changes. PANCREAS: Unremarkable. SPLEEN: Unremarkable. ADRENAL GLANDS: Unremarkable. KIDNEYS AND URETERS: The kidneys are normal in size, shape , and attenuation. No hydronephrosis, hydroureter, or calculi seen. No perinephric stranding. There is a 0.8 cm cortical hypodensity in the anterior lower pole of the left kidney as seen on sagittal image 41 and axial image 37 from series 2. It is too small to fully characterize and statistically represents a cortical cyst. BLADDER: Unremarkable. GASTROINTESTINAL TRACT: The small and large bowel are unremarkable. The appendix is unremarkable. ABDOMINAL WALL: No significant hernia is appreciated. LYMPH NODES: Normal. VASCULAR: Scattered atherosclerotic calcifications of the abdominal aorta noted. No aneurysmal dilatation. PELVIC VISCERA: The uterus is unremarkable. There is a 2.1 cm left ovarian cyst, better seen on coronal image 44 and axial image 68 from series 2. No pelvic free fluid. OSSEOUS STRUCTURES: Unremarkable. IMPRESSION: No acute intra-abdominal finding. A 2.1 cm left ovarian cyst. A subcentimeter left renal cortical hypodensity which is too small to fully characterize and can represent a cortical cyst. DICTATED BY: Elias Nicole MD DATE/TIME DICTATED:09/01/171928 ACCESS ASSOC:KE DATE/TIME TRANSCRIBED:09/01/171928 CONFIDENTIAL, DO NOT COPY WITHOUT APPROPRIATE AUTHORIZATION. <Electronically signed in Other Vendor System> SIGNED BY: Elias Nicole MD 09/01/171943 (Tanvir Cruz) Departure Departure Disposition: HOME OR SELF CARE Condition: Stable Clinical Impression Primary Impression: Back pain Referrals: Earnestine Agarwal APRN (PCP/Family) Additional Instructions: Return if any concerns worsening symptoms. Take tramadol ibuprofen and Flexeril for pain. Follow-up with your primary care doctor next week. Please go over all results of today's visit with your primary care doctor. Contact your primary care doctor to let them know you were here in the emergency room. There may be nonspecific findings which may not be related to your visit today here in the emergency room but may require further evaluation and chronic monitoring by your primary care doctor. If you had a laceration today the chance of foreign body always remains. You should follow-up with your primary care doctor for recheck in 3-5 days for a wound check. If you had an x-ray done there is a chance that a fracture could have been missed on initial read and you should follow-up with your primary care doctor for repeat x-rays if symptoms persist. If your blood pressure was elevated here in the emergency room please have rechecked by [facility] primary care doctor within the next 48. If you were prescribed a narcotic here in the emergency room or any type of controlled substances you're not allowed to drive while taking this medication or operate any type of heavy machinery. Narcotics can make you feel lightheaded dizziness nausea and can cause constipation. You may need to crop picker a stool softener. Thank you for choosing [facility] emergency room. Please return to the emergency room immediately if you have any other concerns worsening of symptoms. Departure Forms: Customer Survey General Discharge Information Prescriptions: Current Visit Scripts Tramadol HCl 1-2 TAB PO BIDP PRN pain #10 TAB Ibuprofen 1 TAB PO TID #30 TAB Cyclobenzaprine HCl 1 TAB PO TID #20 TAB Comments 09/01/2017 8:24:19 PM Patient clinically looks well. Patient is in no apparent distress. Patient is nontoxic-appearing. Pain is likely most consistent with muscle skeletal pain. No acute findings. Follow-up with PCP. Denies any other concerns. Pain control. Improved after Toradol. No shortness of breath. No chest pain. No other associated symptoms. (Asad SNYDER,Tanvir) PA/CHIEF YEOMAN Co-Sign Statement Statement: ED Attending supervision documentation- [] I saw and evaluated the patient. I have also reviewed all the pertinent lab results and diagnostic results. I agree with the findings and the plan of care as documented in the PA's/CHIEF YEOMAN's documentation. [X] I have reviewed the ED Record and agree with the PA's/CHIEF YEOMAN's documentation. [] Additions or exceptions (if any) to the PAs/CHIEF YEOMAN's note and plan are summarized below: [] (Ana Maria WATKINS,Adriel Talley)
--- NOTE | 2017-09-01 17:18 | ULTRASOUND REPORT ---
EXAMINATION: US RETROPERITONEAL COMPLETE (RENAL) CLINICAL INFORMATION: Bilateral flank pain COMPARISON: None TECHNIQUE: Real-time imaging of the kidneys and bladder. FINDINGS: RIGHT KIDNEY: 10.0 x 5.1 x 4.8 cm (SAG x AP x TRV). The kidney is normal in size, contour, and echogenicity. Renal cortical thickness is normal. No calculi or focal parenchymal lesions. No hydronephrosis. LEFT KIDNEY: 10.3 x 4.8 x 4.3 cm (SAG x AP x TRV). The kidney is normal in size, contour, and echogenicity. Renal cortical thickness is normal. No calculi or focal parenchymal lesions. No hydronephrosis. BLADDER: Partially distended and unremarkable. Bilateral ureteral jets are demonstrated. Prevoid bladder volume is 69.8 mL. Postvoid bladder volume is 0 mL. IMPRESSION: Unremarkable renal ultrasound.
--- NOTE | 2017-09-01 19:44 | CT SCAN REPORT ---
EXAMINATION: CT ABDOMEN AND PELVIS WITH CONTRAST CLINICAL INFORMATION: Bilateral flank pain COMPARISON: Renal ultrasound the same day TECHNIQUE: Multidetector volumetric imaging was performed of the abdomen and pelvis following IV administration of 95 mL of Optiray 320 intravenous contrast. Sagittal and coronal reformatted images were obtained on the technologist's workstation. DLP: 264.18 mGy-cm FINDINGS: LUNG BASES: The visualized lung bases are unremarkable. LIVER, GALLBLADDER, AND BILIARY TREE: The liver is normal in size, shape, and attenuation. No focal hepatic lesion or biliary ductal dilatation is present. The gallbladder is unremarkable with no evidence of radiopaque gallstones, gallbladder wall thickening, or obvious pericholecystic inflammatory changes. PANCREAS: Unremarkable. SPLEEN: Unremarkable. ADRENAL GLANDS: Unremarkable. KIDNEYS AND URETERS: The kidneys are normal in size, shape, and attenuation. No hydronephrosis, hydroureter, or calculi seen. No perinephric stranding. There is a 0.8 cm cortical hypodensity in the anterior lower pole of the left kidney as seen on sagittal image 41 and axial image 37 from series 2. It is too small to fully characterize and statistically represents a cortical cyst. BLADDER: Unremarkable. GASTROINTESTINAL TRACT: The small and large bowel are unremarkable. The appendix is unremarkable. ABDOMINAL WALL: No significant hernia is appreciated. LYMPH NODES: Normal. VASCULAR: Scattered atherosclerotic calcifications of the abdominal aorta noted. No aneurysmal dilatation. PELVIC VISCERA: The uterus is unremarkable. There is a 2.1 cm left ovarian cyst, better seen on coronal image 44 and axial image 68 from series 2. No pelvic free fluid. OSSEOUS STRUCTURES: Unremarkable. IMPRESSION: No acute intra-abdominal finding. A 2.1 cm left ovarian cyst. A subcentimeter left renal cortical hypodensity which is too small to fully characterize and can represent a cortical cyst.
[2017-09-01] MEDS ORDERED: CYCLOBENZAPRINE10 M1 PO (20:19)
[2017-09-01] MEDS ORDERED: TRAMADOL HCL50 M1 PO (20:19)
[2017-09-01] MEDS ORDERED: IBUPROFEN800 M1 PO (20:19)
[2017-09-01 20:59] VITALS: BP 118/62
--- NOTE | 2017-09-04 10:04 | OP PSYCH INCIDENTAL NOTE ---
OPS Incidental Note Details: Rcopia: Nicoderm CQ 21 mg/24 hr daily transdermal patch : Apply 1 patch to skin once a day Disp. 30 NR (last: 09/04/2017 ) by YOMAIRA started on: 09/04/2017 stop on: 2017 [id number] [address] [place] [phone] (Voice)
== END 2017-09-01 21:13 ==
LOC: ERH 13:02
PROVIDERS: Physician Assistant Medical
DX: R10.32 Left lower quadrant pain (principal)
CPT/HCPCS: 74177; 76775; 81001; 81025; 87086; 96374; J1885

== ENCOUNTER 2017-11-05 17:39 | Inpatient (IN) | payer OTHER ==
[~2017-11-05] VITALS: Ht 152.4 cm; Wt 54.9 kg
[~2017-11-05 17:39] MED LIST changes: +CYCLOBENZAPRINE10 M1 PO; +IBUPROFEN800 M1 PO; +TRAMADOL HCL50 M1 PO
[2017-11-05 18:06] LABS: ABSOLUTE BASOPHIL COUNT 0 /CUMM (0.0-0.2); ABSOLUTE EOSINOPHIL COUNT 0 /CUMM (0.0-0.7); ABSOLUTE GRANULOCYTE CT 6.8 /CUMM (1.4-6.5); ABSOLUTE LYMPH COUNT 3.2 /CUMM (1.2-3.4); ABSOLUTE MONOCYTE COUNT 0.5 /CUMM (0.10-0.60); BASOPHIL % 0.3 % (0.0-2.0); EOSINOPHIL % 0.1 % (0-5); GRANULOCYTE % 64.4 % (42.2-75.2); MEAN CORPUSCULAR HGB 30.2 PG (27.0-31.0); MEAN CORPUSCULAR HGB CONC 33.3 G/DL (33.0-37.0); MEAN CORPUSCULAR VOLUME 90.8 FL (81.0-99.0); RBC DISTRIBUTION WIDTH 14.3 % (11.5-14.5); RED BLOOD CELL CT 4.08 /CUMM (4.20-5.40); WHITE BLOOD CELL COUNT 10.6 /CUMM (4.8-10.8)
[2017-11-05] MEDS ORDERED: LITHIUM CARBON150 M1 PO (18:09)
[2017-11-05] MEDS ORDERED: LITHIUM CARBON300 M4 PO (18:09)
[2017-11-05] MEDS ORDERED: SYNTHROID75 MCG PO (18:10)
[2017-11-05] MEDS ORDERED: TRAZODONE HCL150 M1 PO (18:10)
[2017-11-05] MEDS ORDERED: TOPIRAMATE200 M2 PO (18:10)
--- NOTE | 2017-11-05 18:27 | ED GENERAL ADULT ---
History of Present Illness General Chief Complaint: Psychiatric Related Complaint Stated Complaint: LLUVIA MAX, PEC DR. WAN Source: patient Exam Limitations: poor historian Vital Signs & Intake/Output Vital Signs & Intake/Output Vital Signs Date Time Temp Pulse Resp B/P B/P Pulse O2 O2 Flow FiO2 Mean Ox Delivery Rate 11/06 0738 98.0 62 18 105/67 99 Room Air 11/06 0616 97.0 60 20 99/49 96 Room Air 11/05 2240 98.0 67 18 96/62 96 Room Air 11/05 1757 98.5 63 18 111/80 100 Room Air ED Intake and Output 11/06 0000 11/05 1200 Intake Total 0 Output Total Balance 0 Intake, Oral 0 Patient 121 lb Weight Weight Reported by Patient Measurement Method Allergies Coded Allergies: bupropion (Intermediate, HIVES 07/20/15) Reconcile Medications Aripiprazole (Abilify) 20 MG TABLET 1 TAB PO AT BEDTIME mood stabilization Cyclobenzaprine HCl 10 MG TABLET 1 TAB PO TID SPASMS Desvenlafaxine Succinate (Pristiq ER) 100 MG TAB.ER.24H 1 TAB PO DAILY anxiety /depression Ibuprofen 800 MG TABLET 1 TAB PO TID pain Levothyroxine Sodium (Synthroid) 75 MCG TABLET 1 TAB PO DAILY THYROID CONDITION (Reported) [place] Carbonate 150 MG CAPSULE 1 CAP PO QPM DEPRESSION (Reported) [place] Carbonate 300 MG CAPSULE 1 CAP PO QPM DEPRESSION (Reported) Melatonin 5 MG TABLET 10 MG PO AT BEDTIME insomnia Nicotine (Nicotine Patch) 14 MG/24 HOUR PATCH.TD24 14 MG TOP 0800 tobacco cessation Topiramate 200 MG TABLET 1 TAB PO D ANXIETY (Reported) Tramadol HCl 50 MG TABLET 1-2 TAB PO BIDP PRN pain Trazodone HCl 150 MG TABLET 1 TAB PO QPM INSOMNIA (Reported) Trazodone HCl 100 MG TABLET 100 MG PO AT BEDTIME insomnia/depression Triage Note: PT LLUVIA AFTER HER DOCTOR CALLED PD DUE TO CONCERN FOR PT SAFETY FOR SI. PT DID NOT WANT TO STAY IN [facility] OFFICE SO DOCTOR CALLED PT. PT WAS FOUND IN [facility]. PER EMS A WILL BE FAXING A PEC. PT DENIES SI/HI AT THIS TIME. Triage Nurses Notes Reviewed? yes Onset: Abrupt Duration: day(s): Timing: recent history HPI: 11/05/17 7 PM The patient was referred to the emergency department by her psychiatrist for depression with suicidal ideation. She does admit to depression. She denies any medical complaints at this time. She says she's been feeling depressed for the past several days. She admits to suicidal ideation. She is had significant stressors over the last several weeks. (Sage Shook DO) Past History Travel History Traveled to [place] past 21 day No Medical History Any Pertinent Medical History? 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 No (Sage Shook DO) Review of Systems Review of Systems Constitutional: Denies: fever. EENTM: Reports: no symptoms. Respiratory: Reports: no symptoms. Cardiovascular: Reports: no symptoms. GI: Reports: no symptoms. Genitourinary: Reports: no symptoms. Musculoskeletal: Reports: no symptoms. Skin: Reports: no symptoms. Neurological/Psychological: Reports: depressed. Hematologic/Endocrine: Reports: no symptoms. Immunologic/Allergic: Reports: no symptoms. (Sage Shook DO) Physical Exam Physical Exam General Appearance: alert, awake, anxious, mild distress Head: atraumatic, normal appearance Eyes: Bilateral: normal appearance, PERRL, EOMI. Ears, Nose, Throat: normal pharynx, normal ENT inspection Neck: normal inspection, supple, full range of motion Respiratory: normal breath sounds, chest non-tender, no respiratory distress Cardiovascular: regular rate/rhythm Peripheral Pulses: 4+ radial (R), 4+ radial (L) Gastrointestinal: non-tender Back: normal range of motion Extremities: no edema Neurologic/Psych: awake, alert, oriented x 3, depressed affect Skin: intact, normal color, warm/dry Core Measures ACS in differential dx? No CVA/TIA Diagnosis: No Sepsis Present: No Sepsis Focused Exam Completed? No (Boone DO,Sage L.) Progress Differential Diagnoses I considered the following diagnoses in my evaluation of the patient: [ Depression, suicidal ideation] Plan of Care: Orders Procedure Date/time Status Regular Diet 11/06 B Active Admit to inpatient psych 11/06 08 Active Continuous Observation Monitor 11/06 2215 Active Add-on Test (ER Only) 11/06 2055 Active ED CRISIS PSYCH CONSULT 11/05 194 Active ACETOMINOPHEN 11/05 175 Complete THYROID STIMULATING HORMONE 11/05 175 Complete THYROXINE 11/05 175 Complete SALICYLATE 11/05 175 Complete LITHIUM 11/05 175 Complete ETHANOL 11/05 175 Complete COMPREHENSIVE METABOLIC PANEL 11/05 175 Complete CBC WITHOUT DIFFERENTIAL 11/05 175 Complete URINE DRUG SCREEN FOR ER ONLY 11/05 175 Complete Current Medications Sig/Toan Start time Last Medication Dose Stop Time Status Admin Levothyroxine Sodium 0.075 MG DAILY 11/06 0900 UNVr 11/06 (Synthroid) 0836 Topiramate 200 MG DAILY 11/06 09 UNVr 11/06 (Topamax) 0836 Nicotine 14 MG 11/06 0800 UNVr 11/06 (Nicotine Cq) 0836 Venlafaxine HCl 150 MG 0800 11/06 0800 UNVr 11/06 (Effexor Xr) 0836 Aripiprazole 20 MG QPM 11/05 2100 UNVr 11/05 (Abilify) 2234 Cyclobenzaprine HCl 10 MG TID 11/05 2100 UNVr 11/06 (Flexeril 10MG Tab) 0836 Ibuprofen 800 MG TID 11/05 2100 UNVr 11/06 (Motrin) 0836 [place] Carbonate 150 MG QPM 11/05 2100 UNVr 11/05 ([place] Carbonate) 2234 [place] Carbonate 300 MG QPM 11/05 2100 UNVr 11/05 ([place] Carbonate) 2234 Melatonin 10 MG AT BEDTIME 11/05 2100 UNVr 11/05 (Melatonin) 2234 Trazodone HCl 150 MG AT BEDTIME 11/05 2100 UNVr 11/05 (Desyrel) 2234 Tramadol HCl See Dose .[BIDP] PRN 11/06 1999 UNVr (Ultram) Insts (1) Dose Instructions: (1)Tramadol HCl (Ultram): 1-2 TAB Laboratory Tests 11/05/17 1758: Urine Opiates Screen < 100, Methadone Screen < 40, Barbiturate Screen < 60, Ur Phencyclidine Scrn < 6.00, Amphetamines Screen < 100, U Benzodiazepines Scrn < 85, Urine Cocaine Screen < 50, Urine Cannabis Screen < 5.00 11/05/17 1758: Anion Gap 9, Estimated GFR > 60, BUN/Creatinine Ratio 8.8, Glucose 84, Calcium 9.9, Total Bilirubin 0.3, AST 16, ALT 21, Alkaline Phosphatase 70, Total Protein 6.8, Albumin 4.0, Globulin 2.8, Albumin/Globulin Ratio 1.4, TSH 7.710 H, Thyroxine (T4) 9.3, CBC w Diff NO MAN DIFF REQ, RBC 4.08 L, MCV 90.8, MCH 30.2, MCHC 33.3, RDW 14.3, Gran % 64.4, Lymphocytes % 30.4, Monocytes % 4.8, Eosinophils % 0.1, Basophils % 0.3, Absolute Granulocytes 6.8 H, Absolute Lymphocytes 3.2, Absolute Monocytes 0.5, Absolute Eosinophils 0, Absolute Basophils 0, Salicylates < 1.0, Acetaminophen < 10.0 L, [place] 1.0, Serum Alcohol < 10.0 Initial ED EKG: none (Sage Shook DO) Comments: 11/06/2017 7:13:45 AM patient signed out to me by 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 (Tiana WATKINS,Sage Alfonso) Departure Departure Condition: Stable Referrals: Earnestine Agarwal APRN (PCP/Family) Departure Forms: Customer Survey General Discharge Information Psych Admission Note Psychiatric Admission: I have seen and evaluated JACQUELINE DELUCA. I have also reviewed all the pertinent lab results and diagnostic results. JAMIEKLAUSJACQUELINE RODRIGUEZ will be admitted to our inpatient Psychiatric unit for treatment and care. (Sage Shook DO) Departure Disposition: STILL A PATIENT Comments 11/05/17, 7:46PM... pt signed out to me... discussed with juliette... pt to be admitted [facility] in the AM. pt signed out to dr. benjamin, 11/06/17, 7am. Psych Admission Note Psychiatric Admission: I have seen and evaluated JACQUELINE DELUCA. I have also reviewed all the pertinent lab results and diagnostic results. JACQUELINE DELUCA will be admitted to our inpatient Psychiatric unit for treatment and care. (Francie WATKINS,Kvng Chávez) Departure Clinical Impression Primary Impression: Depression Qualifiers: Depression Type: major depressive disorder Major depression recurrence: unspecified whether recurrent Active/Remission status: currently active Major depression episode severity: severe Psychotic features: without psychotic features Qualified Code: F32.2 - Major depressive disorder, single episode, severe without psychotic features Secondary Impressions: At risk for suicide (Taina WATKINS,Sage Alfonso) Critical Care Note Critical Care Note Critical Care Time: 30-74 min (Sage Shook DO)
--- NOTE | 2017-11-05 20:29 | ED PSYCH CRISIS CONSULTATION ---
See Addendum Crisis Consult Basic Assessment Date of Consult: 11/05/17 Responsible Person/Accompanied By: Sent in by ambulance and on a PEC Insurance Authorization: Insurance #1: Insurance name: [employer] C&A Phone number: Policy number: [id number] Group number: Authorization number: ED Provider: Patient's ED Provider: Sage Shook DO Primary Care Physician: Patient's PCP: Earnestine Agarwal APRN PCP's Current Psychiatrist: Bea Sorenson MD Chief Complaint: Psychiatric Related Complaint Patient's Quote: " I don't think I should be here today, Dr. Sorenson overreacted. " Present Illness: The patient is a 52 year old single female presenting to the ED on a PEC, from her outpatient provider Dr. Sorenson at [facility]. The patient presents calm, cooperative, with soft speech and was tearful at periods during the evaluation. She states that she had suicidal thoughts last week, however notes that they have passed and she does not think she needs to be here. She states that she does have depression rating it an8 out of 10 and anxiety rating it a 6 out of 10, 10 being the most severe. She states that she has been feeling helpless and hopeless and at times useless and worthless. She states " I hate my life," and lists finances and interpersonal relationship issues as why. She states that she was dating a man for 3.5 years and recently, "he blocked her," with nothing said and she does not have any idea why they are no longer talking. She admits to having suicidal and homicidal thoughts last week reporting, " I have several different scenarios for suicide and one of them is driving into oncoming traffic, and I thought why not do it with him (her son), in the car and save him from his pain and suffering." She states that she no longer feels this way and never told him that she had those thoughts. She admits to a history of suicide attempts, noting that she tried to kill herself 2 or 3 times, with the last one being in 2017, when she took an overdose. She states that she has had difficulty with sleep, appetite, concentration and motivation. She denies any current drug or alcohol abuse, stating that she has been sober for 9 years on November 15 and plans to start drinking again on the or , depending on which day she has to work. 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 She would like to go home and maybe start IOP. MIRACLE met with her daughters Kuldip Cee ([phone]) and Karly Fernandes ), who state that their mother has struggled with depression, however they have no concerns about their mothers safety. MIRACLE spoke with OP Clinician Cristina Gallego who states that the patient was sent over from OP, as Dr. Sorenson has had increasing concerns for the patients safety. Cristina states that the patient did make suicidal and homicidal statements last week, however recanted. Cristina states that the patient has been talking about drinking after 9 years sober. Cristina brought the patients PEC, written by Dr. Sorenson, to the ED. Patient's Address: [address] [place] [address] Other Phone Number: Who Do You Live With? Family (resides with 2 daughters) Family/Informants Interviewed: Daughters Kuldip Cee [phone] and Juan Fernandes [phone] Allergies - Coded Allergies: bupropion (Intermediate, HIVES 07/20/15) Current Medications - Scheduled Medications Aripiprazole (Abilify) 20 MG TABLET 1 TAB PO AT BEDTIME mood stabilization #14 TAB Prescribed by Ricarda Roman APRN on 05/26/16 Last Taken: At an unknown date and time Cyclobenzaprine HCl 10 MG TABLET 1 TAB PO TID SPASMS #20 TAB Prescribed by Tanvir Cruz on 09/01/17 Last Taken: At an unknown date and time Desvenlafaxine Succinate (Pristiq ER) 100 MG TAB.ER.24H 1 TAB PO DAILY anxiety /depression #14 TAB Prescribed by Ricarda Roman APRN on 05/26/16 Ibuprofen 800 MG TABLET 1 TAB PO TID pain #30 TAB Prescribed by Tanvir Cruz on 09/01/17 Levothyroxine Sodium (Synthroid) 75 MCG TABLET 1 TAB PO DAILY THYROID CONDITION #30 (Reported) Entered as Reported by Rita Olsen on 11/05/17 1810 [place] Carbonate 150 MG CAPSULE 1 CAP PO QPM DEPRESSION #30 (Reported) Entered as Reported by Rita Olsen on 11/05/17 180 [place] Carbonate 300 MG CAPSULE 1 CAP PO QPM DEPRESSION #90 (Reported) Entered as Reported by Rita Olsen on 11/05/171808 Melatonin 5 MG TABLET 10 MG PO AT BEDTIME insomnia #28 TAB Prescribed by Ricarda Roman APRN on 05/26/16 Last Taken: At an unknown date and time Nicotine (Nicotine Patch) 14 MG/24 HOUR PATCH.TD24 14 MG TOP 0800 tobacco cessation #14 PATCH Prescribed by Ricarda Roman APRN on 05/26/16 Last Taken: At an unknown date and time Topiramate 200 MG TABLET 1 TAB PO D ANXIETY #30 (Reported) Entered as Reported by Rita Olsen on 11/05/171809 Trazodone HCl 150 MG TABLET 1 TAB PO QPM INSOMNIA #30 (Reported) Entered as Reported by Rita Olsen on 11/05/171809 Trazodone HCl 100 MG TABLET 100 MG PO AT BEDTIME insomnia/depression #14 Prescribed by Ricarda Roman APRN on 05/26/16 Scheduled PRN Medications Tramadol HCl 50 MG TABLET 1-2 TAB PO BIDP PRN pain #10 TAB Prescribed by Tanvir Cruz on 09/01/17 Laboratory Results: Laboratory Tests 11/05/171757: Urine Opiates Screen < 100, Methadone Screen < 40, Barbiturate Screen < 60, Ur Phencyclidine Scrn < 6.00, Amphetamines Screen < 100, U Benzodiazepines Scrn < 85, Urine Cocaine Screen < 50, Urine Cannabis Screen < 5.00 11/05/171757: Anion Gap 9, Estimated GFR > 60, BUN/Creatinine Ratio 8.8, Glucose 84, Calcium 9.9, Total Bilirubin 0.3, AST 16, ALT 21, Alkaline Phosphatase 70, Total Protein 6.8, Albumin 4.0, Globulin 2.8, Albumin/Globulin Ratio 1.4, CBC w Diff NO MAN DIFF REQ, RBC 4.08 L, MCV 90.8, MCH 30.2, MCHC 33.3, RDW 14.3, Gran % 64.4, Lymphocytes % 30.4, Monocytes % 4.8, Eosinophils % 0.1, Basophils % 0.3, Absolute Granulocytes 6.8 H, Absolute Lymphocytes 3.2, Absolute Monocytes 0.5, Absolute Eosinophils 0, Absolute Basophils 0, Salicylates < 1.0, Acetaminophen < 10.0 L, Serum Alcohol < 10.0 Past History Past Medical History Neurological: NONE EENT: NONE Cardiovascular: NONE Respiratory: NONE Gastrointestinal: NONE Hepatic: NONE Renal: NONE Musculoskeletal: NONE Psychiatric: anxiety, depression Endocrine: THYROID CONDITION Blood Disorders: NONE Cancer(s): NONE 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 Physical Limitations (Interventions): none identified Psychiatric Treatment History Psych Treatment Psychiatric Treatment Yes Inpatient Treatment Yes Outpatient Treatment Yes Location of Treatment [facility], [facility] and OPS. Reason for Treatment Depression and anxiety Dates of Treatment Current with OPS at [facility] Diagnosis by History: Major Depressive Disorder and anxiety Substance Use/Abuse History Drug Use/Abuse Substances Used/Abused Yes Substance Used/Abused Alcohol First Use Unknown Last Used 9 years sober How much used/taken N/A How often N/A For how long N/A Route of use Oral Substance Abuse Treatment Substance Abuse Treatment Past Substance Abuse [place] No Inpatient Treatment No Outpatient Treatment No Location of Treatment N/A Reason for Treatment N/A Dates of Treatment N/A Response to Treatment N/A Comments: The patient has been sober for 9 years and states that her 9 year anniversary is November 14 and she plans to start drinking again on the or . Current Mental Status Mental Status Orientation: Person, Place, Situation Affect: Appropriate, Sad Speech: Soft Neuro-vegetative: Appetite Decreased, Concentration Poor, Helpless, Sleep Disturbance Appearance Appearance- Dress/Hygiene: She was dressed in hospital attire, with hair pulled back and sitting in a chair. Behaviors Thought Process: WNL Thought Content: WNL Memory: WNL Insight: WNL SI/HI Risk Assessment Past Suicidal Ideation/Attempts Yes Current Suicidal Ideation/Att No Past Homicidal Ideation/Att: No Current Homicidal Ideation/Attempts No Degree of Intent: She states that she does have a history of suicidal ideations, with 2-3 attempts. She reports that her last attempt was in 2017, via OD. She states that last week she had thoughts to drive her car into oncoming traffic, with her son in the car. She states that she does not feel that way now. Danger To: Others, Self Gravely Disabled: Lack of Insight, Poor Judgment Risk Factors: high anxiety/distress, history of suicide atmpts, SA/MH hospitalized, substance abuse Lethality Ratin PTSD Checklist PTSD Done? patient declined (Denies trauma and abuse hx.) ED Management Sitter: Yes Restraints: No DSM5/PS Stressors/Medical Prob Diagnosis' (DSM 5, Stressors, Medical): F33.2 Major Depressive Disorder, recurrent, severe F41.9 Unspecified Anxiety Disorder F10.20 Alcohol Use Disorder, in sustained remission (9 years) Medical: "Fibroids" Stressors: Finances and interpersonal relationship issues. Current GAF: 28 Comments: N/A Departure Disposition Psych Medical Clearance Date: 11/05/17 Medically Cleared at: 1844 Time Started: 1844 Time Ended: 1944 Psychiatrist Consulted: Kvng Santiago MD Date Disposition Established: 11/05/17 Time Disposition Established: 1944 Plan for Disposition - Modality: Inpatient Psychiatry Facility: [facility] Contact: N/A Telephone: N/A Rationale for Disposition: The patient presents on a PEC, with depressed mood, anxiety, feeling helpess, and feeling hopeless with decreased sleep, appetite, concentration and motivation. She recently had thoughts to kill herself and her son. The case was discussed with Dr. Santiago and he finds her to be an acute risk to self and in need of an inpatient admisison. She will be held in the ED overnight and admitted to [facility] in the AM. Type of IP Admission: PEC Additional Instructions: N/A Referrals Earnestine Agarwal APRN (PCP/Family)
--- NOTE | 2017-11-06 08:19 | IP CRISIS DIAG ASSESS PSYCH ---
Diagnostic Assessment Basic Assessment Insurance Authorization: Insurance #1: Insurance name: [employer] C&A Phone number: Policy number: [id number] Group number: Authorization number: Primary Care Physician: Patient's PCP: Earnestine Agarwal APRN PCP's Patient's Quote: " I don't think I should be here today, Dr. Sorenson overreacted. " Present Illness: Per Present Illness authored by LISA Eduardo: The patient is a 52 year old single female presenting to the ED on a PEC, from her outpatient provider Dr. Sorenson at [place]. The patient presents calm, cooperative, with soft speech and was tearful at periods during the evaluation. She states that she had suicidal thoughts last week, however notes that they have passed and she does not think she needs to be here. She states that she does have depression rating it an8 out of 10 and anxiety rating it a 6 out of 10, 10 being the most severe. She states that she has been feeling helpless and hopeless and at times useless and worthless. She states " I hate my life," and lists finances and interpersonal relationship issues as why. She states that she was dating a man for 3.5 years and recently, "he blocked her," with nothing said and she does not have any idea why they are no longer talking. She admits to having suicidal and homicidal thoughts last week reporting, " I have several different scenarios for suicide and one of them is driving into oncoming traffic, and I thought why not do it with him (her son), in the car and save him from his pain and suffering." She states that she no longer feels this way and never told him that she had those thoughts. She admits to a history of suicide attempts, noting that she tried to kill herself 2 or 3 times, with the last one being in 2017, when she took an overdose. She states that she has had difficulty with sleep, appetite, concentration and motivation. She denies any current drug or alcohol abuse, stating that she has been sober for 9 years on November 15 and plans to start drinking again on the or , depending on which day she has to work. 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 She would like to go home and maybe start IOP. SW met with her daughters Kuldip Cee ([phone]) and Karly Fernandes ([phone]), who state that their mother has struggled with depression, however they have no concerns about their mothers safety. MIRACLE spoke with OP Clinician Cristina Gallego who states that the patient was sent over from OP, as Dr. Sorenson has had increasing concerns for the patients safety. Cristina states that the patient did make suicidal and homicidal statements last week, however recanted. Cristina states that the patient has been talking about drinking after 9 years sober. Cirstina brought the patients PEC, written by Dr. Sorenson, to the ED. Patient's Address: [address] [place] [address] Other Phone Number: Who Do You Live With? Family (resides with 2 daughters) Feel Safe Where You Live? Yes If No, Please Elaborate: Pt reports she was in a senior living relationship and partner blocked her recently, completely cutting off contact and she doesn't know why Marital Status: single Do You Have Children? Yes Ages? 15,21,24 Primary Language? Moroccan Language(s) Spoken At Home: Moroccan Family/Informants Interviewed: Daughters Kuldip Cee [phone] and Juan Fernandes [phone] Allergies - Coded Allergies: bupropion (Intermediate, HIVES 07/20/15) Current Medications - Scheduled Medications Aripiprazole (Abilify) 20 MG TABLET 1 TAB PO AT BEDTIME mood stabilization #14 TAB Prescribed by Ricarda Roman APRN on 05/26/16 Last Taken: At an unknown date and time Cyclobenzaprine HCl 10 MG TABLET 1 TAB PO TID SPASMS #20 TAB Prescribed by Tanvir Cruz on 09/01/17 Last Taken: At an unknown date and time Desvenlafaxine Succinate (Pristiq ER) 100 MG TAB.ER.24H 1 TAB PO DAILY anxiety /depression #14 TAB Prescribed by Ricarda Roman APRN on 05/26/16 Ibuprofen 800 MG TABLET 1 TAB PO TID pain #30 TAB Prescribed by Tanvir Cruz on 09/01/17 Levothyroxine Sodium (Synthroid) 75 MCG TABLET 1 TAB PO DAILY THYROID CONDITION #30 (Reported) Entered as Reported by Rita Olsen on 11/05/17 181 [place] Carbonate 150 MG CAPSULE 1 CAP PO QPM DEPRESSION #30 (Reported) Entered as Reported by Rita Olsen on 11/05/17 180 [place] Carbonate 300 MG CAPSULE 1 CAP PO QPM DEPRESSION #90 (Reported) Entered as Reported by Rita Olsen on 11/05/171808 Melatonin 5 MG TABLET 10 MG PO AT BEDTIME insomnia #28 TAB Prescribed by Ricarda Roman APRN on 05/26/16 Last Taken: At an unknown date and time Nicotine (Nicotine Patch) 14 MG/24 HOUR PATCH.TD24 14 MG TOP 0800 tobacco cessation #14 PATCH Prescribed by Ricarda Roman APRN on 05/26/16 Last Taken: At an unknown date and time Topiramate 200 MG TABLET 1 TAB PO D ANXIETY #30 (Reported) Entered as Reported by Rita Olsen on 11/05/171809 Trazodone HCl 150 MG TABLET 1 TAB PO QPM INSOMNIA #30 (Reported) Entered as Reported by Rita Olsen on 11/05/171809 Trazodone HCl 100 MG TABLET 100 MG PO AT BEDTIME insomnia/depression #14 Prescribed by Ricarda Roman APRN on 05/26/16 Scheduled PRN Medications Tramadol HCl 50 MG TABLET 1-2 TAB PO BIDP PRN pain #10 TAB Prescribed by Tanvir Cruz on 09/01/17 Lab Results: Laboratory Tests 11/05/171757: Urine Opiates Screen < 100, Methadone Screen < 40, Barbiturate Screen < 60, Ur Phencyclidine Scrn < 6.00, Amphetamines Screen < 100, U Benzodiazepines Scrn < 85, Urine Cocaine Screen < 50, Urine Cannabis Screen < 5.00 11/05/171757: Anion Gap 9, Estimated GFR > 60, BUN/Creatinine Ratio 8.8, Glucose 84, Calcium 9.9, Total Bilirubin 0.3, AST 16, ALT 21, Alkaline Phosphatase 70, Total Protein 6.8, Albumin 4.0, Globulin 2.8, Albumin/Globulin Ratio 1.4, TSH 7.710 H, Thyroxine (T4) 9.3, CBC w Diff NO MAN DIFF REQ, RBC 4.08 L, MCV 90.8, MCH 30.2, MCHC 33.3, RDW 14.3, Gran % 64.4, Lymphocytes % 30.4, Monocytes % 4.8, Eosinophils % 0.1, Basophils % 0.3, Absolute Granulocytes 6.8 H, Absolute Lymphocytes 3.2, Absolute Monocytes 0.5, Absolute Eosinophils 0, Absolute Basophils 0, Salicylates < 1.0, Acetaminophen < 10.0 L, [place] 1.0, Serum Alcohol < 10.0 Toxicology Screen Completed? Yes Past History Past Medical History Medical History: None/Denies, DEPRESSION, BORDERLINE HYPERCHOLESTEROLEMIA MY DIVERTICULOSIS Past Surgical History Surgical History TUBAL LIGATION, LT KNEE REPAIR Abuse/Trauma History Trauma History/Current Trauma: Denies Legal History Current Legal Status: none Have you ever been arrested? No Number of Arrests: 0 Psychosocial History Strengths/Capabilities: The patient has been conencted to OPS for many years and has supportive children. Physical Limitations (Interventions): none identified Psychiatric Treatment History Psych Treatment Psychiatric Treatment Yes Inpatient Treatment Yes Outpatient Treatment Yes Location of Treatment [facility], IOP and OPS. Reason for Treatment Depression and anxiety Dates of Treatment Current with OPS at [facility] Response to Treatment good stable in OP for a long period of time until recently Diagnosis by History: Major Depressive Disorder and anxiety Risk Factors: high anxiety/distress, history of suicide atmpts, SA/MH hospitalized, substance abuse Substance Use/Abuse History Drug Use/Abuse minimum 12mo Hx Substances Used/Abused No Substance Abuse Treatment Substance Abuse Treatment Past Substance Abuse [place] No Inpatient Treatment No Outpatient Treatment No Location of Treatment N/A Reason for Treatment N/A Dates of Treatment N/A Response to Treatment N/A Sexual History Sexually Active No Sexual Concerns: none reported Education History Highest Level of Education: bachelor's degree Preferred Learning Style: visual, auditory, experiential Current Mental Status Mental Status Orientation: Person, Place, Situation Affect: Appropriate, Sad Speech: Soft Neuro-vegetative: Appetite Decreased, Concentration Poor, Helpless, Sleep Disturbance Appearance Appearance- Dress/Hygiene: She was dressed in hospital attire Behaviors Thought Process: WNL Thought Content: WNL Memory: WNL Insight: WNL SI/HI Risk Assessment - Minimum 6mo History- Past Suicidal Ideation/Attempts Yes Current Suicidal Ideation/Att No Past Homicidal Ideation/Att: No Current Homicidal Ideation/Attempts No Degree of Intent: She states that she does have a history of suicidal ideations, with 2-3 attempts. She reports that her last attempt was in 2017, via OD. She states that last week she had thoughts to drive her car into oncoming traffic, with her son in the car. She states that she does not feel that way now. Danger To: Others, Self Gravely Disabled: Lack of Insight, Poor Judgment Risk Factors: high anxiety/distress, history of suicide atmpts, SA/MH hospitalized, substance abuse Lethality Ratin Needs/Init TX Plan/Goals: Medication Evaluation Psychiatric Evaluation Psychosocial Assesment Individual Therapy Family Meeting Group Therapy AUDIT-C Questionnaire: AUDIT-C Questionnaire: Response Value ETOH use in the past year Never 0 # drinks typical/day Doesn't Drink 0 6 or > drinks per occasion Never 0 Total 0 DSM5/PS Stressors/Medical Prob Diagnosis' (DSM 5, Stressors, Medical): F33.2 Major Depressive Disorder, recurrent, severe F41.9 Unspecified Anxiety Disorder F10.20 Alcohol Use Disorder, in sustained remission (9 years) Medical: "Fibroids" Stressors: Finances and interpersonal relationship issues. Current GAF: 28 Comments: N/A
[2017-11-06 09:33] VITALS: BP 111/70
--- NOTE | 2017-11-06 13:12 | History & Physical ---
General Information and [facility] MD Statement: I have seen and personally examined JACQUELINE DELUCA and documented this H&P. The patient is a 52 year old F who presented with a patient stated chief complaint of []. Source of Information: patient Exam Limitations: no limitations History of Present Illness: 52-year-old female with past medical history significant for depression, hypothyroidism, chronic abdominal pain who is admitted to [facility] with worsening depression. Patient was at her regular psychiatrists office. Apparently she had some thoughts of suicidal and homicidal ideation last week. Patient claims that she was in a group and she had some of those thoughts but she never had a plan. She just wanted to feel better after seeing it loud. She now states that she feels so sorry that she said it loud. She did not want to be admitted to the hospital but she was told by psychiatrist that she needs to do that. She has this chronic abdominal pain and she has seen a drop clipper, urologist. She also will be seen by director statistical programming. In fact her appointment was today and she claims that now she is in the hospital she would have to reschedule. She denies any constipation. She has some chronic diarrhea. She denies any bright red blood per rectum. She sometimes feels nauseous but never throws up. She denies any association with food. She denies any recent fevers chills cough cold, shortness of breath, chest pain or any urinary problems. Allergies/Medications Allergies: Coded Allergies: bupropion (Intermediate, HIVES 07/20/15) Home Med list Aripiprazole (Abilify) 20 MG TABLET 1 TAB PO AT BEDTIME mood stabilization Cyclobenzaprine HCl 10 MG TABLET 1 TAB PO TID SPASMS Desvenlafaxine Succinate (Pristiq ER) 100 MG TAB.ER.24H 1 TAB PO DAILY anxiety /depression Ibuprofen 800 MG TABLET 1 TAB PO TID pain Levothyroxine Sodium (Synthroid) 75 MCG TABLET 1 TAB PO DAILY THYROID CONDITION (Reported) [place] Carbonate 150 MG CAPSULE 1 CAP PO QPM DEPRESSION (Reported) [place] Carbonate 300 MG CAPSULE 1 CAP PO QPM DEPRESSION (Reported) Melatonin 5 MG TABLET 10 MG PO AT BEDTIME insomnia Nicotine (Nicotine Patch) 14 MG/24 HOUR PATCH.TD24 14 MG TOP 0800 tobacco cessation Topiramate 200 MG TABLET 1 TAB PO D ANXIETY (Reported) Tramadol HCl 50 MG TABLET 1-2 TAB PO BIDP PRN pain Trazodone HCl 150 MG TABLET 1 TAB PO QPM INSOMNIA (Reported) Trazodone HCl 100 MG TABLET 100 MG PO AT BEDTIME insomnia/depression Past History Travel History Traveled to [place] past 21 day No Medical History Neurological: NONE EENT: NONE Cardiovascular: NONE Respiratory: NONE Gastrointestinal: NONE Hepatic: NONE Renal: NONE Musculoskeletal: NONE Psychiatric: anxiety, depression Endocrine: THYROID CONDITION Blood Disorders: NONE Cancer(s): NONE OVEN TENDER BAGELS/Reproductive: NONE Isolation History: Standard Surgical History Surgical History: non-contributory Past Family/Social History Family History Relations & Conditions if any Relation not specified for: *No pertinent family history Psychosocial History ETOH Use: denies use Illicit Drug Use: denies illicit drug use Review of Systems Review of Systems Constitutional: Reports: see HPI. EENTM: Reports: see HPI. Cardiovascular: Reports: see HPI. Respiratory: Reports: see HPI. GI: Reports: see HPI. Musculoskeletal: Reports: see HPI. Neurological/Psychological: Reports: see HPI. Exam & Diagnostic Data Last 24 Hrs of Vital Signs/I&O Vital Signs Date Time Temp Pulse Resp B/P B/P Pulse O2 O2 Flow FiO2 Mean Ox Delivery Rate 11/06 0933 97.8 70 111/70 11/06 0738 98.0 62 18 105/67 99 Room Air 11/06 0616 97.0 60 20 99/49 96 Room Air 11/05 2240 98.0 67 18 96/62 96 Room Air 11/05 1757 98.5 63 18 111/80 100 Room Air Intake & Output 11/06 1600 11/06 0800 11/06 0000 Intake Total 0 Output Total Balance 0 Intake, Oral 0 Patient 121 lb 121 lb Weight Weight Reported by Patient Measurement Method Physical Exam General Appearance Alert, Oriented X3, Cooperative, No Acute Distress Skin No Rashes HEENT PERRLA Neck Supple Cardiovascular Regular Rate, Normal S1, Normal S2 Lungs Clear to Auscultation Abdomen Normal Bowel Sounds, Soft, Mild tenderness hypogastrium. Neurological Cranial Nerves II through XII: intact Last 24 Hrs of Labs/[place]: Laboratory Tests 11/05/17 1758: Urine Opiates Screen < 100, Methadone Screen < 40, Barbiturate Screen < 60, Ur Phencyclidine Scrn < 6.00, Amphetamines Screen < 100, U Benzodiazepines Scrn < 85, Urine Cocaine Screen < 50, Urine Cannabis Screen < 5.00 11/05/17 1758: Anion Gap 9, Estimated GFR > 60, BUN/Creatinine Ratio 8.8, Glucose 84, Calcium 9.9, Total Bilirubin 0.3, AST 16, ALT 21, Alkaline Phosphatase 70, Total Protein 6.8, Albumin 4.0, Globulin 2.8, Albumin/Globulin Ratio 1.4, TSH 7.710 H, Thyroxine (T4) 9.3, CBC w Diff NO MAN DIFF REQ, RBC 4.08 L, MCV 90.8, MCH 30.2, MCHC 33.3, RDW 14.3, Gran % 64.4, Lymphocytes % 30.4, Monocytes % 4.8, Eosinophils % 0.1, Basophils % 0.3, Absolute Granulocytes 6.8 H, Absolute Lymphocytes 3.2, Absolute Monocytes 0.5, Absolute Eosinophils 0, Absolute Basophils 0, Salicylates < 1.0, Acetaminophen < 10.0 L, [place] 1.0, Serum Alcohol < 10.0 Assessment/Plan Assessment: 52-year-old female with past history significant for depression, hypothyroidism, chronic abdominal pain who is admitted to [facility] with worsening depression and homicidal and suicidal ideations. Noted abnormal TSH but T4 is normal. Continue present dose of levothyroxine. Patient has been worked up as an outpatient for chronic abdominal pain. She will have to reschedule her appointment with Dr. Grider from . She was slightly hypokalemic on yesterday's labs. I have ordered another BEP. Her electrolytes will be repleted if indicated. Further psych management will be up to the psychiatrist. As Ranked By This Provider Problem List: 1. Depression Qualifiers Depression Type: major depressive disorder Major depression recurrence: unspecified whether recurrent Active/Remission status: currently active Major depression episode severity: severe Psychotic features: without psychotic features Qualified Code: F32.2 - Major depressive disorder, single episode, severe without psychotic features 2. Suicidal ideations 3. Chronic abdominal pain 4. Hypothyroidism Miscellaneous Miscellaneous Documentation Attending Case Discussed With: Carisa Lewis MD Primary Care Physician: Earnestine Agarwal APRN Patient sees these Specialists Psychiatrist Level of Patient Care: [facility]
[2017-11-06 19:55] VITALS: BP 112/71
[2017-11-07 07:55] VITALS: BP 112/78
--- NOTE | 2017-11-07 10:34 | CPS PROVIDER INIT ASMT PSYCH ---
Psychiatric Admission Sap Basis Architect's Note Reviewed: Yes Patient Seen and Examined: Yes Identifying Information: The patient is a 52 year old single female Chief Complaint: " I don't think I should be here today, Dr. Sorenson overreacted." Reaction to Hospitalization: The patient was admitted on a physician emergency certificate History of Present Illness Onset of Illness: The patient has been with [facility]'s outpatient psychiatry Department since 2012. Circumstances Leading to Admission: The patient is a 52 year old single female presenting to the ED on a PEC, from her outpatient provider Dr. Sorenson at [place]. The patient presents calm, cooperative, with soft speech and was tearful at periods during the evaluation. She states that she had suicidal thoughts last week, however notes that they have passed and she does not think she needs to be here. She states that she does have depression rating it an8 out of 10 and anxiety rating it a 6 out of 10, 10 being the most severe. She states that she has been feeling helpless and hopeless and at times useless and worthless. She states " I hate my life," and lists finances and interpersonal relationship issues as why. She states that she was dating a man for 3.5 years and recently, "he blocked her," with nothing said and she does not have any idea why they are no longer talking. She admits to having suicidal and homicidal thoughts last week reporting, " I have several different scenarios for suicide and one of them is driving into oncoming traffic, and I thought why not do it with him (her son), in the car and save him from his pain and suffering." She states that she no longer feels this way and never told him that she had those thoughts. She admits to a history of suicide attempts, noting that she tried to kill herself 2 or 3 times, with the last one being in 2017, when she took an overdose. She states that she has had difficulty with sleep, appetite, concentration and motivation. She denies any current drug or alcohol abuse, stating that she has been sober for 9 years on November 15 and plans to start drinking again on the or , depending on which day she has to work. 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 She would like to go home and maybe start IOP. Problem(s) Justifying Need for Admission: See above Past Psychiatric History Past Diagnosis(es)- if any: F33.2 Major Depressive Disorder, recurrent, severe F41.9 Unspecified Anxiety Disorder F10.20 Alcohol Use Disorder, in sustained remission (9 years) Past Precipitating Factors- if any: Unknown - Include inpatient and outpatient treatment Treatment History: Client in outpatient treatment with Dr. Sorenson and [facility]. [facility] 2017 [facility] 2014 suicide ideation CPS 2013 suicide ideation CPS 2008 suicide ideation History of Suicide Attempts or Gestures Client endorses one previous suicide attempt by OD "many years ago" before she was connected to psychiatric treatment. Client reports she took pills with intention to , fell asleep, and then awoke unharmed. Substance Abuse History: hx alcohol use in remission since 2005 Allergies: Coded Allergies: bupropion (Intermediate, HIVES 07/20/15) Home Med List: Aripiprazole (Abilify) 20 MG TABLET 1 TAB PO AT BEDTIME mood stabilization #14 TAB Prescribed by Ricarda Roman APRN on 05/26/16 Last Taken: At an unknown date and time Cyclobenzaprine HCl 10 MG TABLET 1 TAB PO TID SPASMS #20 TAB Prescribed by Tanvir Cruz on 09/01/17 Last Taken: At an unknown date and time Desvenlafaxine Succinate (Pristiq ER) 100 MG TAB.ER.24H 1 TAB PO DAILY anxiety /depression #14 TAB Prescribed by Ricarda Roman APRN on 05/26/16 Ibuprofen 800 MG TABLET 1 TAB PO TID pain #30 TAB Prescribed by Tanvir Cruz on 09/01/17 Levothyroxine Sodium (Synthroid) 75 MCG TABLET 1 TAB PO DAILY THYROID CONDITION #30 (Reported) Entered as Reported by Rita Olsen on 11/05/17 1810 Naper Carbonate 150 MG CAPSULE 1 CAP PO QPM DEPRESSION #30 (Reported) Entered as Reported by Rita Olsen on 11/05/17 180 Naper Carbonate 300 MG CAPSULE 1 CAP PO QPM DEPRESSION #90 (Reported) Entered as Reported by Rita Olsen on 11/05/17 180 Melatonin 5 MG TABLET 10 MG PO AT BEDTIME insomnia #28 TAB Prescribed by Ricarda Roman APRN on 05/26/16 Last Taken: At an unknown date and time Nicotine (Nicotine Patch) 14 MG/24 HOUR PATCH.TD24 14 MG TOP 0800 tobacco cessation #14 PATCH Prescribed by Ricarda Roman APRN on 05/26/16 Last Taken: At an unknown date and time Topiramate 200 MG TABLET 1 TAB PO D ANXIETY #30 (Reported) Entered as Reported by Rita Olsen on 11/05/171809 Trazodone HCl 150 MG TABLET 1 TAB PO QPM INSOMNIA #30 (Reported) Entered as Reported by Rita Olsen on 11/05/171809 Trazodone HCl 100 MG TABLET 100 MG PO AT BEDTIME Tramadol HCl 50 MG TABLET 1-2 TAB PO BIDP PRN - Include any medical condition(s) that may - impact the patient's recovery/remission Past Medical History: -diverticulosis -borderline hypercholesterolemia Past History Medical History Neurological: NONE EENT: NONE Cardiovascular: NONE Respiratory: NONE Gastrointestinal: NONE Hepatic: NONE Renal: NONE Musculoskeletal: NONE Psychiatric: anxiety, depression Endocrine: THYROID CONDITION Blood Disorders: NONE Cancer(s): NONE REGULATORY SCIENTIST/Reproductive: NONE Isolation History: Standard Surgical History Surgical History: TUBAL LIGATION, LT KNEE REPAIR Psychiatric Family/Social Hx Family History Psychiatric Illness: son- bipolar disorder daughter- depression Substance Use: Father- former alcohol use disorder Suicides: Denied Social History Living Situation: with ex-boyfriend and daughter Significant Relationships (family/friends): three children ages 15, 21, 24 endorses daughters as supports Education: bachelor's degree in [employer] and Communications Vocation/Occupation: Please see the biopsychosocial 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 - #1 Recognizing dangerous situations. - #2 Coping Skills. - #3 Basic information about quitting. Status of Tobacco Cessation Counseling: #1, #2 AND #3 Completed Cessation Med Status Nicotine Patch Ordered Alcohol Screening - ETOH screen POS if BAL >=80 or Audit-C>= M4/F3 Audit-C Score from Diag Assess: 0 Blood Alcohol Level: Laboratory Tests 11/05 1757 Toxicology Serum Alcohol (<10 MG/DL) < 10.0 Alcohol Use Screening Results: Neg per Audit C &/or BAL - If ETOH counseling indicated - the following topics are required. - #1 Express concern about the patient's - drinking at unhealthy levels, include informing - of national norms for moderate drinking: - men <= 14 drinks/week, max 4 drinks/occasion - women <= 7 drinks/week, max 3 drinks/occasion - #2 Providing feedback, including linking alcohol to - negative physical effects (liver injury, hypertension) - negative emotional effects (relationship problems and - depression) - negative occupational consequences (reduced work - performance) - #3 Advising the patient to abstain from alcohol or - to drink below national norms for moderate drinking - (as listed above). Status of ETOH Use Counseling: N/A B/C NO ETOH Use Metabolic Screening - Screen if on a Neuroleptic Medication - Metabolic screening should include: - Blood Pressure, BMI, Glucose or Hgb A1c, & a - Lipid profile from within the past 365 days. Metabolic Screening Patient on a neuroleptic(s) . Enter below results for Hemoglobin A1C, and lipid panel if obtained during the last 365 days. BMI: 23.600 Blood Pressure: 112/78 Laboratory Results From [facility] (If applicable): Lab Cholesterol 216 MG/DL H 01/19/17 1116 Cholesterol/HDL Ratio 3 % 01/19/17 1116 HDL Cholesterol 75 mg/dL H 01/19/17 1116 Hemoglobin A1c 5.4 05/15/16 1956 LDL Cholesterol, Calc 120 mg/dL 01/19/17 1116 Exam and Plan Mental Status Examination Ambulation Status: Steady gait Appearance: Unremarkable appearance Attitude towards examiner: Calm and cooperative Psychomotor activity: Normal psychomotor activity Behavior: Normal behavior Quality of speech: Normal speech Affect: Euthymic Mood: Denied feeling depressed Suicidal Ideation: Denied thinking of suicide Homicidal Ideation: Denied thinking of violence or homicide Hallucinations: Denied hallucinations Paranoid/Delusional Material: Denied feeling paranoid, there were no delusions during the interview. Difficulties with thought organization: Did not have difficulties with thought organization, she was coherent. Insight: She showed reasonable insight Judgment: Recent events suggest questionable judgment Orientation: She was alert and oriented to time, place, and person. Cognition: No difficulties with information processing Memory Function: No evidence of short-term memory impairment Estimate of intellectual functioning: Average Assets/Strengths Patient Identified Assets/Strengths: Patient is intelligent, likable, and has family supports Impression/Plan Impression and Plan: The pt. is a 52-year-old single white female who was sent to the emergency department for an evaluation and a possible admission by her outpatient psychiatrist Dr. Yas MD. The patient insists that it was an overreaction by her outpatient psychiatrist. Patient reported that the statements that were referred to in the crisis evaluation where last week not to yesterday. The crisis evaluation refer to suicidal statements and homicidal statements. Patient reported that this was last week and that the statements were blown out of proportion and she had no intention of hurting herself or hurting her son or anyone else. The patient does not present with any psychotic symptoms or manic symptoms at this point. - Include all active medical diagnosis that require tx DSM 5 Diagnosis(es): F33.2 Major Depressive Disorder, Recurrent, Severe Medical Dx: diverticulosis, hypercholesterolemia, hx left knee repair - Initial Tx Plan for Active Psych & Medical Conditions Treatment Plan: Inpatient psychiatric care with safety checks every 15 minutes and Continue outpatient psychiatric medications Resume Pristiq 100 mg at bedtime, the patient may use her own and Discontinue Abilify patient reported she has not been on it for a long while Discontinue Ultram discontinue Flexeril for the same reason as above Continue Topamax for the time being 200 mg once daily - Factors that would help patient function - in a less restrictive setting. Factors: The patient would be discharge after 2 consecutive days without thoughts of suicide.
--- NOTE | 2017-11-07 17:01 | SOCIAL WORKER PROG NOTE PSYCH ---
Social Work Progress Note Progress Note Shonna shared that she had spoken to her therapist about a suicidal thought to drive herself and her son into another vehicle. She was upset that this was then shared with her psychiatrist and that she was then "kidnapped" by police and brought to the ER. She stated she has no intentions of hurting herself and that she feels what happened was blown out of proportion. I asked if she had previous suicide attempts? She acknowledged 1 attempt by OD of pills last year, where she changed her mind after ingesting and attempted to trailer driver herself to the ER. She was found on the side of the road and brought to the hospital. Another time was 9 years ago when she had a bunch of pills she was going to take , but didn't. I asked why she wanted to drive herself and her son into another vehicle? She said that her son has been suffering with problems, similarily to her in her years and she wanted to spare him the agony of going through all the issues she has. She stated that her son is always talking about suicide and that she has been working on getting him help. She reports that she got him a job with her and that she has been driving him to work. She also indicated that she is connecting him to therapy and he has an upcoming appt. It sounds like she is feeling taxed by her son's distress and that she is having difficulty setting some limits for self care. She lets him yell in the car as she drives and states she attempts to start her day on a positive note, but he is all negative. She also buys him food and cigarettes, because he is waiting for a pay check and states his Father doesn't do anything for him. She is struggling herself financially. She has worked at her job for almost 2 years. 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 She seems to like her job and doesn't find it stressful. Asked if there are any other stressors? She said she was upset that the person she was dating "blocked" her on social media and just cut her off and stopped talking to her. She doesn't understand what happened. She felt that was a bit of a loss. She mentioned a friend that she has been having a difficult time with and doesn't feel that this friendship is worth investing in anymore. She doesn't have any other friends. I asked if she was willing to do IOP? She said she really didn't want to do IOP because she didn't see how it would work out with her work schedule. She mentioned looking into an evening IOP at [facility]. I told her that I would check on that. She would only need a mental health IOP, due to not using substances in 9 years. She really would like to leave the hospital soon. She is open to having a family meeting with her daughters Karly and Kuldip. She signed a release for both of them. She does not want to continue tx with Dr. Sorenson or her therapist at the outpatient program. Called Kuldip and scheduled a family meeting for 2pm .
--- NOTE | 2017-11-07 17:09 | SOCIAL WORKER SOCIAL HX PSYCH ---
Social History Basic Assessment Insurance Authorization: Insurance #1: Insurance name: [facility] Phone number: Policy number: [id number] Group number: Authorization number: Curr Source of Income/Entitlements: employment Primary Care Physician: Patient's PCP: Earnestine Agarwal APRN PCP's Present Problem: The patient presents calm and cooperative with flat affect and soft speech. She states that she is "doing well." She rates her depression a 5 out of 10 and her anxiety a 3 out of 10, 10 being the most severe. She denies any current suicidal or homicidal ideations. The following was taken from the initial consultation The patient is a 52 year old single female presenting to the ED on a PEC, from her outpatient provider Dr. Sorenson at [facility]. The patient presents calm, cooperative, with soft speech and was tearful at periods during the evaluation. She states that she had suicidal thoughts last week, however notes that they have passed and she does not think she needs to be here. She states that she does have depression rating it an8 out of 10 and anxiety rating it a 6 out of 10, 10 being the most severe. She states that she has been feeling helpless and hopeless and at times useless and worthless. She states " I hate my life," and lists finances and interpersonal relationship issues as why. She states that she was dating a man for 3.5 years and recently, "he blocked her," with nothing said and she does not have any idea why they are no longer talking. She admits to having suicidal and homicidal thoughts last week reporting, " I have several different scenarios for suicide and one of them is driving into oncoming traffic, and I thought why not do it with him (her son), in the car and save him from his pain and suffering." She states that she no longer feels this way and never told him that she had those thoughts. She admits to a history of suicide attempts, noting that she tried to kill herself 2 or 3 times, with the last one being in 2017, when she took an overdose. She states that she has had difficulty with sleep, appetite, concentration and motivation. She denies any current drug or alcohol abuse, stating that she has been sober for 9 years on November 15 and plans to start drinking again on the 10th or , depending on which day she has to work. 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 She would like to go home and maybe start IOP. Primary Language? Swiss Language(s) Spoken At Home: Swiss Living Situation Rents or Owns Home? rents Other Living Arrangement: N/A Residential Care/Treatment Fac N/A Feel Safe Where You Are Living Yes Feel Safe in Relationships? No Comments: She denies being in a current relationship, noting her last one ended abruptly and she is not sure why. Allergies - Coded Allergies: bupropion (Intermediate, HIVES 07/20/15) Current Medications - Scheduled Medications Aripiprazole (Abilify) 20 MG TABLET 1 TAB PO AT BEDTIME mood stabilization #14 TAB Prescribed by Ricarda Roman APRN on 05/26/16 Last Taken: At an unknown date and time Cyclobenzaprine HCl 10 MG TABLET 1 TAB PO TID SPASMS #20 TAB Prescribed by Tanvir Cruz on 09/01/17 Last Taken: At an unknown date and time Desvenlafaxine Succinate (Pristiq ER) 100 MG TAB.ER.24H 1 TAB PO DAILY anxiety /depression #14 TAB Prescribed by Ricarda Roman APRN on 05/26/16 Ibuprofen 800 MG TABLET 1 TAB PO TID pain #30 TAB Prescribed by Tanvir Cruz on 09/01/17 Levothyroxine Sodium (Synthroid) 75 MCG TABLET 1 TAB PO DAILY THYROID CONDITION #30 (Reported) Entered as Reported by Rita Olsen on 11/05/17 1810 Mack Carbonate 150 MG CAPSULE 1 CAP PO QPM DEPRESSION #30 (Reported) Entered as Reported by Rita Olsen on 11/05/17 180 Mack Carbonate 300 MG CAPSULE 1 CAP PO QPM DEPRESSION #90 (Reported) Entered as Reported by Rita Olsen on 11/05/17 180 Melatonin 5 MG TABLET 10 MG PO AT BEDTIME insomnia #28 TAB Prescribed by Ricarda Roman APRN on 05/26/16 Last Taken: At an unknown date and time Nicotine (Nicotine Patch) 14 MG/24 HOUR PATCH.TD24 14 MG TOP 0800 tobacco cessation #14 PATCH Prescribed by Ricarda Roman APRN on 02/17/17 Last Taken: At an unknown date and time Topiramate 200 MG TABLET 1 TAB PO D ANXIETY #30 (Reported) Entered as Reported by Rita Olsen on 11/05/171809 Trazodone HCl 150 MG TABLET 1 TAB PO QPM INSOMNIA #30 (Reported) Entered as Reported by Rita Olsen on 11/05/170 Trazodone HCl 100 MG TABLET 100 MG PO AT BEDTIME insomnia/depression #14 Prescribed by Ricarda Roman APRN on 05/26/16 Scheduled PRN Medications Tramadol HCl 50 MG TABLET 1-2 TAB PO BIDP PRN pain #10 TAB Prescribed by Tanvir Cruz on 09/01/17 Consequences of Psych Med Use: N/A Comments: N/A Past History Past Medical History Neurological: NONE EENT: NONE Cardiovascular: NONE Respiratory: NONE Gastrointestinal: NONE Hepatic: NONE Renal: NONE Musculoskeletal: NONE Psychiatric: anxiety, depression Endocrine: THYROID CONDITION Blood Disorders: NONE Cancer(s): NONE 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 No Mother's Age (Current/): 55 ( in 1997) Relationship w/Mother: She states that her mother in 1997 and that it "Started her downward spiral." She states that they were very close, prior to her passing. Father's Age (Current/): 77 Relationship w/Father: "Okay" Any Sibling(s)? Yes Sibling's Gender(s)/Age(s): male Sibling 1:, male Sibling 2: Relationship w/Sibling(s): She states that one of her brothers and that she is somewhat estranged from the other one. Relationship w/Friends: "I don't have any" Family Psych/Sub Abuse/Add Hx: drug of choice (By. Hx.), Mom Depression Number of Pregnancies: 3 (By Hx.) Number of Miscarriages: 0 (By. Hx.) Number of Abortions: 0 (By. Hx.) Other Comments: N/A Abuse/Trauma History Trauma History/Current Trauma: Denies Legal History Legal Guardian/Address/Phone: Self Current Legal Status: none Pending Court Dates: Patient denies Have you ever been arrested No Number of Arrests: 0 Hx of Juvenile Legal Charges? No Hx of Adult Legal Charges? No Civil Proceedings: Patient denied Domestic Relations Court: N/A Child Protective Serv Involvmnt N/A Claims Configuration Analyst N/A Psychosocial History Primary Support System: "I don't have any." Strengths/Capabilities: The patient has been conencted to [facility] for many years and has supportive children. Weaknesses: Chronic mental health issues Physical Limitations (Interventions): none identified Last Physical: August 2016 History of Seizures? No History of Blackouts? No ADL Limitations: none reported [place]/Social/Peer Relations "I don't have any.' Meaningful Activities: "yoga and reading- By Hx. Childhood Roman Catholic: Atheist (By Hx.), Orthodox Current Roman Catholic Affiliation: no amish stated Is Spirituality Important to You? "no" Patient's Ethnicity: Cultural/Ethnic Issues: none reproted Are There Developmental Issues? No Milestones Achieved: fine motor, gross motor Psychiatric Treatment History Psych Treatment Inpatient Treatment Yes Outpatient Treatment Yes Location of Treatment [facility], [facility] and OPS. Reason for Treatment Depression and anxiety Dates of Treatment Current with OPS at [facility] Response to Treatment good stable in OP for a long period of time until recently Current Research Pharmacist: She is currently in treatment will [facility] and sees Dr. Sorenson and her therapist is Renetta. Treatment of Prior Episodes: [facility] by history Diagnosis: Major Depressive Disorder and anxiety Psychodynamic Issues: Financial issues Risk Factors: high anxiety/distress, history of suicide atmpts, SA/MH hospitalized, substance abuse, limited support Substance Use/Abuse History Drug Use/Abuse:Min 12 mo hx Substance Used/Abused Alcohol First Use Unknown Last Used 9 years sober How much used/taken N/A How often N/A For how long N/A Route of use Oral Have Had Periods of Sobriety? Yes Explain: She has been sober for 9 years. Relapse History? No Explain: She states that she has been sober for 9 years without a relapse, however upon presentation to the ED, was talking about planning a rewlapse around her 9 year sobriety date. Have You Ever Attended AA? Yes Do You Attend AA Currently? No Do You Have a Sponsor? No Other Community Resources Used: None noted Symptoms of Use: N/A Substance Abuse Treatment Substance Abuse Treatment Inpatient Treatment No Outpatient Treatment No Location of Treatment N/A Reason for Treatment N/A Dates of Treatment N/A Response to Treatment N/A Comments: N/A Sexual History Sexually Active No Sexual Concerns: none reported Education History Highest Level of Education: bachelor's degree Highest Grade Completed: Graduated 12th grade and then college Vocational Year Completed: N/A Number of College Years: 4 College Degree/Major: Swiss and communications Other Degree(s): N/A Preferred Learning Style: visual (By. History), auditory, experiential HX of Learning Difficulties: None reported Barriers to Learning: None reported Special Communication Needs: None reported Employment History Employment Employed Not in Labor Force: N/A Vocation/Occupational Hx: She works for [employer] and they do work with [employer] No. of Jobs in Last 5 Years: 2 Attendance: Normal Performance: Good Comments: N/A History Have You Been in The ? No If Yes, Explain: N/A Type of Discharge: N/A Date of Discharge: N/A Current Mental Status Mental Status Orientation: Person, Place, Situation Affect: Appropriate, Flat Speech: Soft Neuro-vegetative: Appetite Decreased, Concentration Poor, Helpless, Sleep Disturbance Appearance Appearance- Dress/Hygiene: She was dressed in her own attire and appeared neat, clean and well kempt. Behaviors Thought Process: WNL Thought Content: WNL Memory: WNL Insight: WNL SI/HI Risk Assessment Past Suicidal Ideation/Attempts Yes Current Suicidal Ideation/Att No Past Homicidal Ideation/Att: No Current Homicidal Ideation/Attempts No Degree of Intent: She states that she does have a history of suicidal ideations, with 2-3 attempts. She reports that her last attempt was in 2017, via OD. She states that last week she had thoughts to drive her car into oncoming traffic, with her son in the car. She states that she does not feel that way now. Danger To: Others, Self Gravely Disabled: Lack of Insight, Poor Judgment Risk Factors: High Anxiety/Distress, SA/MH Hospitalization(s), Hx of suicide attempt(s) Lethality Ratin - Conclusion and Recommendations for treatment - and discharge planning Summary: The patient would like to finish hospitalization and return to outpatient with her therapist, Renetta. She does not want to return to treatment with Dr. Sorenson. She should continue to work with treatment team towards transition back to the community when she is found safe to do so.
[2017-11-07 19:58] VITALS: BP 118/72
[2017-11-08 07:49] VITALS: BP 94/67
--- NOTE | 2017-11-08 11:59 | CP SOUTH PROGRESS NOTE PSYCH ---
Psych (Inpt) Progress Note Progress Note Mental Status Examination Steady gait, Unremarkable appearance Calm and cooperative, Normal psychomotor activity Normal behavior, Normal speech, Denied feeling depressed, Denied thinking of suicide Denied thinking of violence or homicide Denied hallucinations, Denied feeling paranoid, there were no delusions during the interview. Did not have difficulties with thought organization, she was coherent. She was alert and oriented to time, place, and person. No difficulties with information processing, no evidence of short-term memory impairment. Assessment: The pt. is a 52-year-old single white female who was sent to the emergency department for an evaluation and a possible admission by her outpatient psychiatrist Dr. Yas MD. The patient insists that it was an overreaction by her outpatient psychiatrist. Patient reported that the statements that were referred to in the crisis evaluation were a week earlier. Since arrival, pt has been denying thoughts of suicide or homicide Diagnosis: F33.2 Major Depressive Disorder, Recurrent, Severe. Treatment Plan: D/C Home OPS follow up of proportion and she had no intention of hurting herself or hurting her son or anyone else. The patient does not present with any psychotic symptoms or manic symptoms at this point. Diagnosis(es): F33.2 Major Depressive Disorder, Recurrent, Severe Medical Dx: diverticulosis, hypercholesterolemia, hx left knee repair Treatment Plan: Continue outpatient psychiatric medications Resume Pristiq 100 mg at bedtime, the patient may use her own and Discontinue Abilify patient reported she has not been on it for a long while Discontinue Ultram discontinue Flexeril for the same reason as above Continue Topamax for the time being 200 mg once daily The patient insists that it was an overreaction by her outpatient psychiatrist. Patient reported that the statements that were referred to in the crisis evaluation where last week not to yesterday. The crisis evaluation refer to suicidal statements and homicidal statements. Patient reported that this was last week and that the statements were blown out of proportion and she had no intention of hurting herself or hurting her son or anyone else. The patient does not present with any psychotic symptoms or manic symptoms at this point. Diagnosis(es): F33.2 Major Depressive Disorder, Recurrent, Severe Medical Dx: diverticulosis, hypercholesterolemia, hx left knee repair Treatment Plan: Inpatient psychiatric care with safety checks every 15 minutes and Continue outpatient psychiatric medications Resume Pristiq 100 mg at bedtime, the patient may use her own and Discontinue Abilify patient reported she has not been on it for a long while Discontinue Ultram discontinue Flexeril for the same reason as above Continue Topamax for the time being 200 mg once daily
[2017-11-08] MEDS ORDERED: NICOTINE PATCH1 EAC2 TOP (14:35)
[2017-11-08] MEDS ORDERED: TRAZODONE HCL100 M1 PO (14:35)
[2017-11-08] MEDS ORDERED: TOPIRAMATE200 M2 PO (14:35)
[2017-11-08] MEDS ORDERED: PRISTIQ ER100 MG PO (14:35)
[2017-11-08] MEDS ORDERED: LITHIUM CARBON300 M4 PO (14:37)
--- NOTE | 2017-11-08 14:38 | Patient Discharge Instructions ---
Psych Discharge Inst General Discharge Information Reason for Admission: thoughts of suicide Psy Discharge Primary Diag+ MDD Summary Tests/Major Procedures Lab Anion Gap 9 11/06/17 1605 BUN 11 mg/dL 11/06/17 1605 BUN/Creatinine Ratio 12.2 % 11/06/17 1605 Carbon Dioxide 26 mmol/L 11/06/17 1605 Chloride 107 mmol/L 11/06/17 1605 Creatinine 0.9 mg/dL 11/06/17 1605 Estimated GFR > 60 ml/min 11/06/17 1605 Potassium 4.4 mmol/L 11/06/17 1605 Sodium 142 mmol/L 11/06/17 1605 [place] 1.0 mmol/L 11/05/17 1758 Studies Pending at DC: None Patient Instructions Contact Information Your Psychiatrist on [facility] was Fadi Aguilar MD * If you are experiencing an emergency related to this hospitalization, please call [phone] to contact the treating psychiatrist or the psychiatrist-on- call. * To Request a copy of your medical records, please contact the Medical Records Department at [phone]. * To request results of studies pending at the time of discharge, please call [phone]. * Continue your Medications until directed to stop by your Healthcare provider. General Medication Information Please continue to take your new medications and your continued home medications , unless otherwise indicated on your discharge medication list, or unless directed by your MD or RN FAMILY to stop them. Special Instructions Diet Regular Activity Normal - Tobacco Use Treatment Offered Post DC Medications Offered: Script Given-See Med List Post DC Tobacco Treatment Plan: Refused Tobacco Tx Pgm - EtOH/Drug Use D/O Treatment Offered Post DC Medications Offered: NA-No EtOH/Drug Use D/O Post DC EtOH/SubAbuse TX Plan: NA-No EtOH/Drug Use D/O Metabolic Screening Not Applicable, patient not on a neuroleptic. Advance Directives Does the Patient have Medical Advance Directives No/Refused further info Discharge Plan Post Hospital Treatment Plan: OPS
--- NOTE | 2017-11-08 14:51 | SOCIAL WORKER PROG NOTE PSYCH ---
Social Work Progress Note Progress Note Family meeting held with Shonna and her daughter Kuldip. Kuldip stated that she didn 't see any reason why her Mom was admitted. She said that she had a thought of SI and talked about it, but she saw it as this had passed and she wouldn't act on it. States "this happens with people that have depression." She has no concerns for her Mother's safety. We talked about Shonna's son and some of his issues. Sounds like Kuldip and her Brother do not speak, because she doesn't feel he is a nice person. She feels he is abusive and manipulative. Shonna does not express any safety concerns that her son will hurt her. He is getting into tx. Talked about her past hx with medication OD. Her daughter said she has a lock box that she will lock up her meds. Shonna agreed to this plan. Discussed her thought/ desire to drink alcohol on 11/15. She said she still plans on doing so and that she doesn't think there is anything wrong with it. She misses the feeling of relaxation on her porch having a drink. She doesn't consider herself an alcoholic. Her daughter also stated she doesn't believe her Mom to be an alcoholic. Pointed out that alcohol may lower her inhibition to do something impulsive that may not be safe for her. Recommended dual IOP should drinking become a problem. Daughter would like to take her Mother home today. We decided we would d/c back to outpatient, since IOP evenings for mental health wasn't an option. Called [facility] and they do not offer a mental health track in the evening. Shonna would like to return to OPS with different providers. An intake was scheduled for 11/15 with Hazel Chávez The soonest med eval was with Oswaldo Jordan APRN on 12/19 at 6:30pm.
--- NOTE | 2017-11-08 14:55 | DISCHARGE SUMMARY REPORT-PSYCH ---
Visit Information Visit Dates/Diagnosis' Admission Date: 11/06/17 Discharge Date: 11/08/17 Reason for Admission: thoughts of suicide Psy Discharge Primary Diag: MDD Hospital Course Course Allergies: Coded Allergies: bupropion (Intermediate, HIVES 07/20/15) Hospital Course/TX Response: 11/07/2017: Dr. Aguilar's Initial Impression and Plan: The pt. is a 52-year-old single white female who was sent to the emergency department for an evaluation and a possible admission by her outpatient psychiatrist Dr. Yas MD. The patient insists that it was an overreaction by her outpatient psychiatrist. Patient reported that the statements that were referred to in the crisis evaluation where last week not to yesterday. The crisis evaluation refer to suicidal statements and homicidal statements. Patient reported that this was last week and that the statements were blown out of proportion and she had no intention of hurting herself or hurting her son or anyone else. The patient does not present with any psychotic symptoms or manic symptoms at this point. Diagnosis(es): F33.2 Major Depressive Disorder, Recurrent, Severe Medical Dx: diverticulosis, hypercholesterolemia, hx left knee repair Initial Treatment Plan: Inpatient psychiatric care with safety checks every 15 minutes and Continue outpatient psychiatric medications Resume Pristiq 100 mg at bedtime, the patient may use her own and Discontinue Abilify patient reported she has not been on it for a long while Discontinue Ultram discontinue Flexeril for the same reason as above Continue Topamax for the time being 200 mg once daily 11/08/2017: Mental Status Examination Steady gait, Unremarkable appearance Calm and cooperative, Normal psychomotor activity Normal behavior, Normal speech, Denied feeling depressed, Denied thinking of suicide Denied thinking of violence or homicide Denied hallucinations, Denied feeling paranoid, there were no delusions during the interview. Did not have difficulties with thought organization, she was coherent. She was alert and oriented to time, place, and person. No difficulties with information processing, no evidence of short-term memory impairment. Assessment: The pt. is a 52-year-old single white female who was sent to the emergency department for an evaluation and a possible admission by her outpatient psychiatrist Dr. Yas MD. The patient insists that it was an overreaction by her outpatient psychiatrist. Patient reported that the statements that were referred to in the crisis evaluation were a week earlier. Since arrival, pt has been denying thoughts of suicide or homicide Diagnosis: F33.2 Major Depressive Disorder, Recurrent, Severe. Treatment Plan: D/C Home OPS follow up Discharge HBIPS - Tobacco Use Treatment Offered Post DC Medications Offered: Script Given-See Med List Post DC Tobacco Treatment Plan: Refused Tobacco Tx Pgm - EtOH/Drug Use D/O Treatment Offered Post DC Medications Offered: NA-No EtOH/Drug Use D/O Post DC EtOH/SubAbuse TX Plan: NA-No EtOH/Drug Use D/O Metabolic Screening - Screen if on a Neuroleptic Medication - Metabolic screening should include: - Blood Pressure, BMI, Glucose or Hgb A1c, & a - Lipid profile from within the past 365 days. Metabolic Screening Not Applicable, patient not on a neuroleptic. Discharge Instructions General Discharge Information Multiple Neuroleptics: Not Applicable Discharge Diet Regular Discharge Activity Normal DC Disposition: Home Referrals Ordered Referrals OUTPATIENT PSYCHIATRY 11/15/17 248/250 [address] [address] [id number] [place] Out[facility] Appt. Intake on 11/15/17 with Lisa Chávez 2:00pm [address] [id number] OUTPATIENT PSYCHIATRY 12/19/17 248/250 [address] [id number] [facility] Psychiatry appt. for medication evaluation with Oswaldo Jordan APRN 12/19/17 6:30pm [address] [id number] Provider Referral 11/14/17 For Groups: Outpatient Psychiatry [facility] 11/14/17 4pm [address] [id number] Prescriptions Stop taking the following medications: Desvenlafaxine Succinate (Pristiq ER) 100 MG TAB.ER.24H ORAL DAILY Qty = 14 Trazodone HCl (Trazodone HCl) 100 MG TABLET ORAL AT BEDTIME Qty = 14 Mcnab Carbonate (Mcnab Carbonate) 150 MG CAPSULE ORAL Every night Qty = 30 Mcnab Carbonate (Mcnab Carbonate) 300 MG CAPSULE ORAL Every night Qty = 90 Trazodone HCl (Trazodone HCl) 150 MG TABLET ORAL Every night Qty = 30 Continue taking these medications: Levothyroxine Sodium (Synthroid) 75 MCG TABLET 1 Tablet ORAL DAILY Qty = 30 Comments: Last Taken:11/08/17 Time:7AM Nicotine (Nicotine Patch) 14 MG/24 HOUR PATCH.TD24 14 Milligram On the skin DAILY @8 AM Qty = 14 Comments: Last Taken:11/08/17 Time:8AM This prescription has been renewed Start taking the following new medications: Mcnab Carbonate (Mcnab Carbonate) 300 MG CAPSULE 300 Milligram ORAL TWICE DAILY Qty = 30 Refills = 5 Comments: Last Taken:11/08/17 Time:8AM Desvenlafaxine Succinate (Pristiq ER) 100 MG TAB.ER.24H 1 Tablet ORAL AT BEDTIME Qty = 30 Refills = 1 Comments: Last Taken:11/07/17 Time:10PM Trazodone HCl (Trazodone HCl) 100 MG TABLET 2 Tablet ORAL Every night Qty = 30 Refills = 4 Comments: Last Taken:11/07/17 Time:10PM The following medications have been changed: Old: Topiramate (Topiramate) 200 MG TABLET 1 Tablet ORAL Every Day Qty = 30 New: Topiramate (Topiramate) 200 MG TABLET 1 Tablet ORAL DAILY Qty = 30 Comments: Last Taken:11/08/17 Time:8AM Studies Pending at Discharge None Copies To: Oswaldo Jordan APRN
--- NOTE | 2017-11-08 15:34 | SOCIAL WORKER PROG NOTE PSYCH ---
Social Work Progress Note Faxed Referral(s) Referred To: [facility] Transition of Care Documents sent: Health Summary Faxed to: [facility] Fax #: [phone] Faxed by: Shonna Andrade Date faxed: 11/08/17 Time Faxed: [phone]
== END 2017-11-08 16:16 | DRG 754 ==
LOC: ERH 17:39 → ERHI 11-06 08:37 → CP SOUTH 11-06 08:37 → ENTRNSPT 11-06 08:52 → EDTRNSPT 11-06 09:11 → EDTRNSPTSTS 11-06 09:11 → CMPTRNSPT 11-06 09:23 → CP SOUTH 11-06 09:30
PROVIDERS: Emergency Medicine
DX: F32.9 Major depressive disorder, single episode, unspecified (principal)
CPT/HCPCS: 36415; 80307; 82436; G0463; G0480; J0401